=== PATIENT | female | born 1940 | race African-American/Black ===

== ENCOUNTER 2025-06-23 07:49 | Outpatient (CLI) | payer MEDICARE, MEDICAID, SELFPAY ==
[2025-06-23 08:34] LABS: Hematocrit 30.0 % (37.0-47.0); Hemoglobin 9.4 g/dL (12.2-16.2); Immature Granulocytes % 0.2 %; Mean Corpuscular HGB Conc 31.3 g/dL (31.8-35.4); Mean Corpuscular Hemoglobin 24.1 pg (27.0-31.2); Mean Corpuscular Volume 76.9 fl (81-99); Nucleated Red Blood Cells % 0 %; Platelet Count 242 K/mm3 (142-424); Red Blood Count 3.90 M/mm3 (4.20-5.40); Red Cell Distribution Width-SD 40.0 fL; White Blood Count 5.9 K/mm3 (4.8-10.8)
[2025-06-23 09:38] LABS: Alanine Aminotransferase 9 U/L (12-78); Albumin Level 3.1 g/dl (3.5-5.0); Albumin/Globulin Ratio 1.2 (1.1-1.8); Alkaline Phosphatase 98 U/L (38-126); Anion Gap 9.9 mEq/L (5-15); Aspartate Amino Transferase 20 U/L (14-36); Bilirubin,Total 0.4 mg/dl (0.2-1.3); Blood Urea Nitrogen 9 mg/dl (7-17); Calcium 9.4 mg/dl (8.4-10.2); Carbon Dioxide 30 mmol/L (22.0-30.0); Chloride 105 mmol/L (98-107); Cholesterol 130 mg/dl (140-200); Creatinine,Serum 0.70 mg/dl (0.52-1.04); Estimated Glomerular Filt Rate 80 ml/min (>60); GFR (African American) 96 ML/MIN (>60); Globulin 2.5 g/dL (1.3-3.2); Glucose 87 mg/dl (74-100); HDL Cholesterol 41 mg/dl (40-60); Potassium 3.9 mmoL/L (3.5-5.1); Sodium 141 mmol/L (136-145); Total Protein,Serum 5.6 g/dl (6.3-8.2); Triglycerides 73 mg/dl (30-150)
[2025-06-23 09:49] LABS: C-Reactive Protein 1.9 mg/L (0-4)
[2025-06-23 09:53] LABS: Free T4 (Free Thyroxine) 1.19 ng/dl (0.78-2.19)
[2025-06-23 10:08] LABS: Thyroid Stimulating Hormone 0.30 uIU/mL (0.465-4.68)
[2025-06-23 13:54] LABS: Hemoglobin A1C 6.3 % (4.0-6.0)
== END 2025-06-23 23:59 | disposition home or self-care (01) ==
PROVIDERS: PCP Family Medicine; Visit Provider Family Medicine
DX: J44.9 Chronic obstructive pulmonary disease, unspecified (principal); E11.9 Type 2 diabetes mellitus without complications; E05.90 Thyrotoxicosis, unspecified without thyrotoxic crisis or storm; M19.90 Unspecified osteoarthritis, unspecified site
CPT/HCPCS: 36415; 80053; 80061; 83036; 84439; 84443; 85025; 86140

== ENCOUNTER 2025-07-18 03:16 | Emergency (ER) | payer MEDICARE, SELFPAY ==
[2025-07-18] VITALS (9 sets, daily range): BP systolic 158–183; BP diastolic 83–99; PULSE 81–96; RESP 16–25; TEMP 36.9–37; O2SAT 96–100; BMI 31.2
--- NOTE | 2025-07-18 04:15 | XR_ITS ---
PROCEDURE INFORMATION: Exam: XR Chest Exam date and time: 07/18/2025 4:23 AM Age: 84 years old Clinical indication: Shortness of breath; Additional info: Chronic SOA TECHNIQUE: Imaging protocol: Radiologic exam of the chest. Views: 1 view. COMPARISON: No relevant prior studies available. FINDINGS: Lungs: Chronic interstitial changes. Mild hyperinflation. No focal infiltrates. No consolidation. Pleural spaces: Unremarkable. No pleural effusion. No pneumothorax. Heart/Mediastinum: Unremarkable. Moderate cardiomegaly. Bones/joints: Unremarkable. IMPRESSION: No acute findings. Chronic interstitial changes and moderate cardiomegaly.
[2025-07-18 04:37] LABS: Coronavirus 19, PCR Not Detected (NotDetected); Influenza A, PCR Not Detected (NotDetected); Influenza B, PCR Not Detected (NotDetected)
[2025-07-18 04:48] LABS: Hematocrit 32.2 % (37.0-47.0); Hemoglobin 10.0 g/dL (12.2-16.2); Immature Granulocytes % 0.2 %; Mean Corpuscular HGB Conc 31.1 g/dL (31.8-35.4); Mean Corpuscular Hemoglobin 24.0 pg (27.0-31.2); Mean Corpuscular Volume 77.2 fl (81-99); Nucleated Red Blood Cells % 0 %; Platelet Count 292 K/mm3 (142-424); Red Blood Count 4.17 M/mm3 (4.20-5.40); Red Cell Distribution Width-SD 42.5 fL; White Blood Count 5.9 K/mm3 (4.8-10.8)
[2025-07-18 05:05] LABS: D-Dimer 1.51 ug/mL (0.0-0.5)
--- NOTE | 2025-07-18 05:05 | HMH.EDGENADL ---
Discharge Plan Disposition Patient Disposition: Xfer [facility] Hospital Prescriptions Prescriptions: No Action carvedilol 25 mg tablet 37.5 mg PO BID Rx Instructions: must administer with a meal/food potassium chloride 10 mEq capsule, extended release 10 meq PO DAILY polyethylene glycol 3350 [Miralax] 17 gram powder in packet 17 g PO BID PRN (Reason: constipation) cetirizine 5 mg tablet 5 mg PO DAILY pantoprazole 40 mg tablet,delayed release (DR/EC) 40 mg PO DAILY methimazole 5 mg tablet 2.5 mg PO DAILY hydroxyzine HCl 25 mg tablet 25 mg PO TID PRN (Reason: anxiety) furosemide [Lasix] 20 mg tablet 20 mg PO DAILY nystatin 100,000 unit/gram powder 1 applic topical BID albuterol sulfate [Ventolin HFA] 90 mcg/actuation HFA aerosol inhaler 1 puff inhalation QID apixaban 5 mg tablet 5 mg PO BID umeclidinium-vilanterol 62.5-25 mcg/actuation blister with device 1 inh inhalation DAILY tramadol 50 mg tablet 50 mg PO BID PRN (Reason: pain) Qty: 60 5RF gabapentin 100 mg capsule 100 mg PO HS Qty: 30 5RF Referrals Follow up/Referrals: Provider,Referral, MD [Primary Care Provider, Medical] - See instructions Activity Restrictions/Add. Instructions Additional Instructions/Restrictions: Your CT scan showed small effusions and mild pulmonary edema. Your workup was otherwise negative. Recommend considering increasing your diuretic regimen. We attempted to call and speak with family but I was unable to reach them. Clinical Impressions Clinical Impression: Chronic dyspnea Print Language Print Language: Belarusian Discharge ED Provider: Jadno Cadena General Adult HPI General Chief complaint: Shortness of Breath/Dyspnea Stated complaint: Shortness of Air Time Seen by Provider: 07/18/25 03:50 Mode of Arrival: EMS Source of Information: Patient and EMS Description of Symptoms (Recalled from ER Triage Doc. by RN): PT brought to the ED via [facility] for evaluation of original c/o SOB when awoke from sleep due to not having her cpap. PT denies any c/o SOB upon arrival. PT stated she is scared to say if she feels safe or not at LTC facility. History of Present Illness HPI narrative: 84-year-old female with history of COPD on baseline oxygen, diabetes, coronary artery disease, A-fib, mild neurocognitive disorder,, resident at [facility] presents for shortness of breath. She reports that she feels short of breath all the time, has chest pain all the time, has a headache all the time. She is unhappy with her care at [facility], she wishes she was back in the hospital in [place]. The majority of the discussion that we had was for her asking to try to get her family to come pick her up or for us to transfer her to [place] so she can go home. She was admitted to [facility] after hospitalization for respiratory failure. She is bedbound and incontinent of bowel and bladder. She is concerned that she does not have her CPAP at the nursing facility that she had at home. She is concerned that she is not on all of her normal medications. Related Data Home Medications ?Medication ?Instructions ?Recorded ?Confirmed albuterol sulfate 90 mcg/actuation 1 puff inhalation QID 06/20/25 06/20/25 aerosol inhaler (Ventolin HFA) apixaban 5 mg tablet 5 mg PO BID 06/20/25 06/20/25 carvedilol 25 mg tablet 37.5 mg PO BID 06/20/25 06/20/25 cetirizine 5 mg tablet 5 mg PO DAILY 06/20/25 06/20/25 furosemide 20 mg tablet (Lasix) 20 mg PO DAILY 06/20/25 06/20/25 hydroxyzine HCl 25 mg tablet 25 mg PO TID PRN anxiety 06/20/25 06/20/25 methimazole 5 mg tablet 2.5 mg PO DAILY 06/20/25 06/20/25 nystatin 100,000 unit/gram topical 1 applic topical BID 06/20/25 06/20/25 powder pantoprazole 40 mg tablet,delayed 40 mg PO DAILY 06/20/25 06/20/25 release polyethylene glycol 3350 17 gram 17 g PO BID PRN constipation 06/20/25 06/20/25 oral powder packet (Miralax) potassium chloride 10 mEq 10 meq PO DAILY 06/20/25 06/20/25 capsule,extended release umeclidinium 62.5 mcg-vilanterol 1 inh inhalation DAILY 06/20/25 06/20/25 25 mcg/actuation powdr for inhalation Previous Rx's ?Medication ?Instructions ?Recorded gabapentin 100 mg capsule 100 mg PO HS #30 caps 06/27/25 tramadol 50 mg tablet 50 mg PO BID PRN pain #60 tabs 06/27/25 Allergies Allergy/AdvReac Type Severity Reaction Status Date / Time RAVI Inhibitors Allergy Verified 06/20/25 20:13 acetaminophen (From Panlor Allergy Verified 06/20/25 20:13 (hydrocodone-acetamin)) amlodipine Allergy Verified 06/20/25 20:13 clarithromycin Allergy Verified 06/20/25 20:13 codeine (From Allergy Verified 06/20/25 20:13 Tylenol-Codeine) diphenhydramine Allergy Verified 06/20/25 20:13 hydrocodone (From Panlor Allergy Verified 06/20/25 20:13 (hydrocodone-acetamin)) isosorbide Allergy Verified 06/20/25 20:13 latex Allergy Verified 06/20/25 20:13 meperidine Allergy Verified 06/20/25 20:13 morphine Allergy Verified 06/20/25 20:13 penicillin V Allergy Verified 06/20/25 20:13 sulfacetamide Allergy Verified 06/20/25 20:13 PFSH [facility] Disclaimer: The information contained in this section may have been updated after the patient was seen, as this information can be updated by other users. Medical History (Updated 07/18/25 @ 07:02 by Jadon Cadena MD) Left knee pain Allergy to multiple drugs Impaired mobility Decubitus skin ulcer Left renal mass Gastroesophageal reflux disease Allergic rhinitis Rotator cuff tear Osteoarthritis Mild cognitive impairment Diabetic neuropathy Diastolic CHF with preserved left ventricular function, NYHA class 4 Heart failure with preserved ejection fraction Diabetes mellitus Atrial fibrillation Coronary artery disease Hyperthyroidism Hypertension Sleep apnea with use of continuous positive airway pressure (CPAP) COPD (chronic obstructive pulmonary disease) Surgical History (Updated 06/20/25 @ 21:12 by Hal Shoemaker MD) History of knee replacement procedure of right knee History of History of cataract surgery History of cholecystectomy History of breast surgery History of hysterectomy History of carpal tunnel surgery History of coronary artery stent placement Social History (Updated 06/20/25 @ 21:08 by Hal Shoemaker MD) Smoking Status: Former smoker alcohol intake: never current occupational status: previously employed Travel in the last 8 weeks?: None Have you lived/traveled outside US in past 30 days?: No Contact w/someone who lives/traveled outside US past 30 days?: No Exposure to someone with infectious disease in past 14 days?: No Do you have a fever (greater than 100.4 F or 38 C)?: No Have you tested positive for COVID-19?: No Exposed to someone with COVID-19 in past 14 days?: No Do you have a sore throat?: No Do you have a cough?: No Do you have any weakness?: No Do you have any diarrhea?: No Are you experiencing any unusual bleeding?: No Do you have any muscle aches/pain?: No Do you have any abdominal pain?: No Are you experiencing loss of taste or smell?: No Other Medical History Have you received the Pneumonia Vaccine: No (unknown) ROS Obtained: Yes All systems reviewed & no additional complaints except as documented Physical Exam General General appearance: alert Comment: A bit anxious Head Head exam: atraumatic and normocephalic Eye Eye exam: Present normal appearance, PERRL and EOMI ENT ENT exam: Present normal oropharynx and normal external ear exam Neck Neck exam: Present normal inspection and full ROM Chest Chest inspection: Present normal inspection and symmetric chest wall rise; Absent tenderness Respiratory Respiratory exam: Present normal lung sounds bilaterally; Absent respiratory distress Cardiovascular Cardiovascular exam: Present regular rate and normal rhythm Abdominal Exam Abdominal exam: Present soft; Absent distention, tenderness or guarding Extremities Exam Extremities exam: Present normal inspection; Absent edema or joint swelling Back Exam Back exam: Present normal inspection; Absent tenderness Neurological Exam Neurological exam: Present alert and oriented X3; Absent motor sensory deficit Psychiatric Psychiatric exam: Present normal affect and normal mood Skin Skin exam: Present warm, dry and normal color Lymphatic Lymphatic Findings: no adenopathy Medical Decision Making Medical Records Medical records reviewed: Yes I reviewed the patient's medical records. Screening: Per USPSTF and CDC recommendations, given the prevalence of disease in our region, it is our hospital?s policy to screen for HIV and viral Hepatitis for all patients aged 18 and over and those with ongoing risk factors. Gabriel Inquiry Pt receiving controlled substance: No Gabriel was queried for this patient: No Vital Signs: 07/18/25 04:00 07/18/25 04:00 07/18/25 04:32 Temperature 98.6 F Temperature Source Axillary Pulse Rate 93 H 91 H Pulse Rate [Right] 96 H Respiratory Rate 16 Blood Pressure 158/93 H 166/96 H Blood Pressure [Right Arm] 180/99 H Blood Pressure Mean [Right Arm] 126 02 Sat by Pulse Oximetry 100 100 100 Oxygen Delivery Method Oxygen Flow Rate (LPM) 07/18/25 04:44 07/18/25 05:34 07/18/25 06:00 Temperature Temperature Source Pulse Rate 87 81 Pulse Rate [Right] Respiratory Rate 25 H 24 Blood Pressure 174/94 H 175/93 H Blood Pressure [Right Arm] Blood Pressure Mean [Right Arm] 02 Sat by Pulse Oximetry 96 100 100 Oxygen Delivery Method Nasal Cannula Oxygen Flow Rate (LPM) 3 07/18/25 06:11 07/18/25 06:30 07/18/25 07:01 Temperature Temperature Source Pulse Rate 89 91 H 91 H Pulse Rate [Right] Respiratory Rate 24 20 20 Blood Pressure 175/93 H 183/91 H 167/83 H Blood Pressure [Right Arm] Blood Pressure Mean [Right Arm] 02 Sat by Pulse Oximetry 100 100 100 Oxygen Delivery Method Nasal Cannula Oxygen Flow Rate (LPM) 3 Lab Data Lab results reviewed: Yes I reviewed the patient's lab results. Lab Results 07/18/25 04:30: SARS-CoV-2 (PCR) Not detected, Influenza A Untype (PCR) Not detected, Influenza Type B (PCR) Not detected 07/18/25 04:37: WBC 5.9, RBC 4.17 L, Hgb 10.0 L, Hct 32.2 L, MCV 77.2 L, MCH 24.0 L, MCHC 31.1 L, RDW 15.2, Plt Count 292, MPV 9.2, Neut % (Auto) 55.1, Lymph % (Auto) 28.1, Brooks % (Auto) 9.0, Eos % (Auto) 6.8, Baso % (Auto) 0.8, Neut # (Auto) 3.3, Lymph # (Auto) 1.7, Brooks # (Auto) 0.5, Eos # (Auto) 0.4, Baso # (Auto) 0.1, D-Dimer 1.51 H, Sodium 140, Potassium 3.7, Chloride 106, Carbon Dioxide 31 H, Anion Gap 6.7, BUN 9, Creatinine 0.70, Estimated Creat Clear 47, Estimated GFR 80, Est GFR ( Amer) 96, Glucose 112 H, Calcium 9.1, Total Bilirubin 0.4, AST 17, ALT 9 L, Alkaline Phosphatase 116, Troponin I < 0.01, NT-Pro-B Natriuret Pep 3380 H, Total Protein 6.1 L, Albumin 3.4 L, Globulin 2.7, Albumin/Globulin Ratio 1.3 07/18/25 04:37 07/18/25 04:37 Orders (Tests/Meds): ED MEDICATIONS Discontinued Medications Generic Name Dose Route Start Last Admin Trade Name Hungq PRN Reason Stop Dose Admin Iopamidol 80 ml 07/18/25 06:14 07/18/25 06:17 Iopamidol-370 (76%);100ml Bottle IV 07/18/25 06:15 80 ml ONCE ONE Administration Sodium Chloride 50 ml 07/18/25 06:14 07/18/25 06:17 0.9 % Sodium Chloride 50 Ml Vial IV 07/18/25 06:15 50 ml ONCE ONE Administration Sodium Chloride 10 ml 07/18/25 06:14 07/18/25 06:17 Sodium Chloride 0.9% 10ml Syr (Rad Only) IV 07/18/25 06:15 10 ml ONCE ONE Administration ORDERS Category Date Time Status CT angio chest PE protocol Stat Cat Scan 07/18/25 05:51 Completed CXR --portable [XR chest portable] Stat Exams 07/18/25 04:15 Completed BNP [NT Pro Brain Natriuretic Pep.] Stat Lab 07/18/25 04:37 Completed CBC w/Auto Diff [Complete Blood Count Auto Diff] Stat Lab 07/18/25 04:37 Completed CMP [Comprehensive Metabolic Panel] Stat Lab 07/18/25 04:37 Completed D-Dimer Stat Lab 07/18/25 04:37 Completed Rapid PCR Covid and Flu A/B Stat Lab 07/18/25 04:30 Completed Troponin I Q3H Lab 07/18/25 04:37 Completed Troponin I Q3H Lab 07/18/25 07:30 Ordered ECG Data Tracing #1: I reviewed this ECG and interpreted as documented below: A-fib, no significant ST elevation, rate of 96 ECG initial impression date: 07/18/25 ECG initial impression time: 05:27 HEART Score History (anamnesis): Slightly suspicious ECG: Normal Age: >65 years Risk factors: Atherosclerosis history Troponin: </= normal limit HEART Score: 4 Medical Decision Narrative: 84-year-old female with history of coronary artery disease, COPD on nasal cannula at baseline, diabetes, neurocognitive disorder, resident at [facility] presents for chronic chest pain chronic shortness of breath and headache.. History was obtained via interactive discussion with patient, EMS, chart review. On arrival, patient is [afebrile, hemodynamically stable, satting appropriately, alert, oriented x4, GCS 15], moving all extremities spontaneously. Full physical exam performed and significant for clear lungs bilaterally, patient satting on percent on home 3 L. Differential includes but is not limited to pneumonia, ACS, PE, intracranial abnormality, tension headache, migraine headache, malingering. Patient is generally well-appearing. Workup initiated including CBC CMP troponin D-dimer chest x-ray EKG. On re-evaluation, patient [remains afebrile, HD stable.] Laboratory workup independently interpreted by me and significant for positive D-dimer, initial troponin, BNP 3000. Will follow-up with CT PE to assess given positive dimer. Imaging independently interpreted by me and significant for cardiomegaly, clear lungs. CT does not show any evidence of PE. There is a small left and small to moderate right pleural effusion without evidence of pneumonia. See radiology read for full review of final results. Overall, patient's presentation seems most consistent with chronic respiratory failure/heart failure. Patient does not appear acutely decompensated, has no lower extremity edema, unremarkable labs. She does have small effusions and minimal pulmonary edema noted on CT. Patient has been satting 100% on her home oxygen level. Given this, I do not think she meets criteria for admission at this time. Recommend she increase her diuretic regimen at the nursing facility and continue to monitor. Return precautions given. Procedures Risk/Benefits of Procedure(s) Were Explained: Yes Critical Care Critical Care Time Critical Care Time: No
[2025-07-18 05:07] LABS: Alanine Aminotransferase 9 U/L (12-78); Albumin Level 3.4 g/dl (3.5-5.0); Albumin/Globulin Ratio 1.3 (1.1-1.8); Alkaline Phosphatase 116 U/L (38-126); Anion Gap 6.7 mEq/L (5-15); Aspartate Amino Transferase 17 U/L (14-36); Bilirubin,Total 0.4 mg/dl (0.2-1.3); Blood Urea Nitrogen 9 mg/dl (7-17); Calcium 9.1 mg/dl (8.4-10.2); Carbon Dioxide 31 mmol/L (22.0-30.0); Chloride 106 mmol/L (98-107); Creatinine Clearance Estimated 47 mL/min (50-200); Creatinine,Serum 0.70 mg/dl (0.52-1.04); Estimated Glomerular Filt Rate 80 ml/min (>60); GFR (African American) 96 ML/MIN (>60); Globulin 2.7 g/dL (1.3-3.2); Glucose 112 mg/dl (74-100); Potassium 3.7 mmoL/L (3.5-5.1); Sodium 140 mmol/L (136-145); Total Protein,Serum 6.1 g/dl (6.3-8.2)
[2025-07-18 05:14] LABS: NT Pro Brain Natriuretic Pep. 3380 pg/mL (0-450)
[2025-07-18 05:15] LABS: Troponin I < 0.01 ng/ml (0.00-0.034)
--- NOTE | 2025-07-18 05:27 | ECG_ITS ---
APPROVED REPORT Exam: Resting ECG HR:96 bpm ECG Measurements Heart Rate 96 AXES QRSd 90 QRS -25 QT 360 T 36 QTc 413 Conclusion ATRIAL FIBRILLATION BORDERLINE LEFT AXIS DEVIATION [QRS AXIS < -20] MINIMAL ST DEPRESSION [0.025+ mV ST DEPRESSION] ABNORMAL RHYTHM ECG UNCONFIRMED REPORT Electronically signed by : ALBERTO ARRIOLA, 07/19/2025 22:57:56
--- NOTE | 2025-07-18 05:51 | CT_ITS ---
PROCEDURE INFORMATION: Exam: CTA Chest With Contrast Exam date and time: 07/18/2025 6:17 AM Age: 84 years old Clinical indication: Shortness of breath and other: Positive d dimer; Additional info: SOA, positive dimer TECHNIQUE: Imaging protocol: Computed tomographic angiography of the chest with contrast. Exam focused on the arteries. 3D rendering (Not supervised by radiologist): MIP and/or 3D reconstructed images were created by the technologist. Radiation optimization: All CT scans at this facility use at least one of these dose optimization techniques: automated exposure control; mA and/or kV adjustment per patient size (includes targeted exams where dose is matched to clinical indication); or iterative reconstruction. Contrast material: ISO 370; Contrast volume: 80 ml; Contrast route: INTRAVENOUS (IV); COMPARISON: CR XR CHEST PORTABLE 07/18/2025 4:23 AM FINDINGS: Pulmonary arteries: Normal. No pulmonary emboli. Aorta: Unremarkable. No aortic aneurysm. No aortic dissection. Lungs: Mild diffuse ground-glass opacity is present bilaterally. Pleural spaces: Small to moderate right and small left-sided pleural effusion. Heart: Mild cardiomegaly. Coronary arteries: Small to moderate amount of coronary calcium. Lymph nodes: Unremarkable. No enlarged lymph nodes. Bones/joints: Unremarkable. No acute fracture. Soft tissues: Unremarkable. IMPRESSION: 1. No evidence of pulmonary embolus. 2. Mild diffuse ground-glass opacity may represent developing pulmonary edema. 3. Small to moderate right and small left-sided pleural effusion. 4. Coronary atherosclerosis with moderate cardiomegaly.
[2025-07-18] MEDS: IOPAMIDOL-370 (76%);100ML BOTTLE 80 ML IV (06:17)
[2025-07-18] MEDS: 0.9 % SODIUM CHLORIDE 50 ML VIAL IV (06:17)
[2025-07-18] MEDS: SODIUM CHLORIDE 0.9% 10ML SYR (RAD ONLY) 10 ML IV (06:17)
--- NOTE | 2025-07-18 07:18 | PC.NURSE ---
Report called to Jailene
== END 2025-07-18 07:29 ==
PROVIDERS: Emergency Provider Emergency Medicine
DX: R06.09 Other forms of dyspnea (principal); R07.9 Chest pain, unspecified; R51.9 Headache, unspecified; J90 Pleural effusion, not elsewhere classified; I48.91 Unspecified atrial fibrillation; J44.9 Chronic obstructive pulmonary disease, unspecified; I11.0 Hypertensive heart disease with heart failure; I50.30 Unspecified diastolic (congestive) heart failure; Z87.891 Personal history of nicotine dependence; Z99.81 Dependence on supplemental oxygen
CPT/HCPCS: 71045; 71275; 80053; 83880; 84484; 85025; 85378; 87636; 93005; 99285; Q9967

== ENCOUNTER 2025-07-23 08:12 | Outpatient (CLI) | payer MEDICARE, SELFPAY ==
[2025-07-23 08:54] LABS: Chloride 102 mmol/L (98-107)
[2025-07-23 08:55] LABS: Potassium 3.8 mmoL/L (3.5-5.1); Sodium 139 mmol/L (136-145)
[2025-07-23 08:58] LABS: Anion Gap 7.8 mEq/L (5-15); Blood Urea Nitrogen 11 mg/dl (7-17); Calcium 9.1 mg/dl (8.4-10.2); Carbon Dioxide 33 mmol/L (22.0-30.0); Creatinine,Serum 0.80 mg/dl (0.52-1.04); Estimated Glomerular Filt Rate 68 ml/min (>60); GFR (African American) 82 ML/MIN (>60); Glucose 89 mg/dl (74-100)
== END 2025-07-23 23:59 | disposition home or self-care (01) ==
PROVIDERS: PCP Family Medicine; Visit Provider Family Medicine
DX: I11.0 Hypertensive heart disease with heart failure (principal); I50.30 Unspecified diastolic (congestive) heart failure
CPT/HCPCS: 36415; 80048

== ENCOUNTER 2025-07-26 07:47 | Outpatient (CLI) | payer MEDICARE, SELFPAY ==
[2025-07-26 08:31] LABS: Chloride 101 mmol/L (98-107); Potassium 3.2 mmoL/L (3.5-5.1)
[2025-07-26 08:34] LABS: Anion Gap 7.2 mEq/L (5-15); Blood Urea Nitrogen 10 mg/dl (7-17); Carbon Dioxide 33 mmol/L (22.0-30.0); Creatinine,Serum 0.70 mg/dl (0.52-1.04); Estimated Glomerular Filt Rate 80 ml/min (>60); GFR (African American) 96 ML/MIN (>60); Sodium 138 mmol/L (136-145)
[2025-07-26 08:35] LABS: Calcium 9.2 mg/dl (8.4-10.2); Glucose 94 mg/dl (74-100)
== END 2025-07-26 23:59 | disposition home or self-care (01) ==
PROVIDERS: PCP Nurse Practitioner Family; Visit Provider Nurse Practitioner Family
DX: I11.0 Hypertensive heart disease with heart failure (principal); I50.30 Unspecified diastolic (congestive) heart failure
CPT/HCPCS: 36415; 80048

== ENCOUNTER 2025-07-28 13:19 | Observation (INO) | payer MEDICARE, SELFPAY ==
[2025-07-28] VITALS (9 sets, daily range): BP systolic 139–160; BP diastolic 74–92; PULSE 72–101; RESP 12–19; TEMP 36.6–37.1; O2SAT 96–100; BMI 28.9; BMI 27.4
--- NOTE | 2025-07-28 13:28 | XR_ITS ---
FINAL REPORT CLINICAL HISTORY: SOA/AMS COMPARISON: 07/18/2025 FINDINGS: A portable view of the chest was obtained. Cardiomegaly is present, stable when compared to the prior examination of 07/18/2025. The lungs are clear. There is no pleural effusion or pneumothorax. Bilateral paratracheal opacity may represent an enlarged thyroid gland. IMPRESSION: No acute process on this portable exam. Cardiomegaly, stable. Reviewed, Interpreted and Dictated by Lisbeth Trevino MD Transcribed by Maria G Awan Authenticated and [facility]
--- NOTE | 2025-07-28 13:29 | CT_ITS ---
FINAL REPORT TECHNIQUE: Thin section axial images were obtained from skull base to vertex without contrast. Coronal and sagittal reconstruction images were obtained from the axial data. Exam was performed using dose reduction techniques such as automated exposure control, adjustment of the mA and kV according to patient size, and use of iterative reconstruction technique. CLINICAL HISTORY: Altered mental status COMPARISON: None FINDINGS: There is atrophy. No mass effect or midline shift. No intracranial hemorrhage. No hydrocephalus. Periventricular low density is likely related to changes of chronic small vessel ischemia. There is a low density in the right thalamus that likely represents a remote lacunar infarct. The basilar cisterns are preserved. The posterior fossa is without acute abnormality. The soft tissues are without acute abnormality. No acute osseous abnormality is identified. IMPRESSION: No acute intracranial or osseous abnormality. Atrophy and changes suggesting chronic small vessel ischemia. Reviewed, Interpreted and Dictated by Lisbeth Trevino MD Transcribed by Maria G Awan Authenticated and [facility]
--- NOTE | 2025-07-28 13:29 | CT_ITS ---
FINAL REPORT TECHNIQUE: Thin section axial images were obtained from the aortic arch to the skull base after intravenous contrast injection per CTA protocol. Multiplanar reconstruction images were obtained. Exam was performed using dose reduction techniques and the ALARA principle. CLINICAL HISTORY: Encephalopathy encephalopathy COMPARISON: None FINDINGS: CTA NECK: Aortic arch: There is a normal three-vessel configuration to the aortic arch. There is no significant stenosis of the great vessels at their origins. Right carotid artery: The right common carotid artery is patent without stenosis. The cervical portions of the right internal carotid artery are patent without stenosis. 0% stenosis per NASCET criteria. Left carotid artery: The left common carotid artery is patent without stenosis. The cervical portions of the left internal carotid artery are patent without stenosis. 0% stenosis per NASCET criteria. Vertebral arteries: The vertebral arteries are patent. No significant stenosis. IMPRESSION: No significant vascular abnormality in the cervical portions of the carotid and vertebral arteries. Reviewed, Interpreted and Dictated by Lisbeth Trevino MD Transcribed by Maria G Awan Authenticated and [facility]
--- NOTE | 2025-07-28 13:29 | CT_ITS ---
FINAL REPORT TECHNIQUE: Thin section axial images were obtained through the neck and head after contrast administration per CT angiogram protocol. Multiplanar reconstruction images were obtained from the axial data. Exam was performed using dose reduction techniques such as automated exposure control, adjustment of the mA and kV according to patient's size, and use of iterative reconstruction technique. CLINICAL HISTORY: Encephalopathy COMPARISON: None FINDINGS: CTA NECK: Aortic arch: There is a normal three-vessel configuration to the aortic arch. There is no significant stenosis of the great vessels at their origins. Right carotid artery: The right common carotid artery is patent without stenosis. The cervical portions of the right internal carotid artery are patent without stenosis. 0% stenosis per NASCET criteria. Left carotid artery: The left common carotid artery is patent without stenosis. The cervical portions of the left internal carotid artery are patent without stenosis. 0% stenosis per NASCET criteria. Vertebral arteries: The vertebral arteries are patent. No significant stenosis. CTA HEAD: The intracerebral portions of the carotid arteries are patent. The anterior and posterior circulation are patent. The basilar artery is patent. The vertebral arteries are patent. There is no significant stenosis, aneurysm, or AVM. IMPRESSION: CTA NECK: No significant vascular stenosis identified. CTA HEAD: No significant vascular stenosis identified. Reviewed, Interpreted and Dictated by Lisbeth Trevino MD Transcribed by Maria G Awan Authenticated and [facility]
--- NOTE | 2025-07-28 13:30 | XR_ITS ---
FINAL REPORT CLINICAL HISTORY: Bilateral knee pain COMPARISON: None FINDINGS: AP, lateral and oblique views of the right knee were obtained. There is no prior exam for comparison. The patient has undergone a prior right knee total arthroplasty. The hardware is intact without evidence of fracture or dislocation. The soft tissues are normal. There is no joint effusion. IMPRESSION: Prior right total arthroplasty of the knee, with intact hardware and no evidence of fracture or dislocation. Reviewed, Interpreted and Dictated by Lisbeth Trevino MD Transcribed by Maria G Awan Authenticated and . [facility]
--- NOTE | 2025-07-28 13:30 | XR_ITS ---
FINAL REPORT CLINICAL HISTORY: Bilateral knee pain, popping of knee COMPARISON: None FINDINGS: AP, lateral and oblique views of the left knee were obtained. There is no prior exam for comparison. Advanced degenerative joint disease is present, along with osteopenia. There is an osteochondral lesion of the lateral femoral condyle. No acute fracture is identified, however there is a large joint effusion with multiple calcific loose bodies. Would consider MRI on an elective basis for further evaluation. IMPRESSION: Advanced degenerative joint disease, with a large joint effusion and multiple calcific loose bodies. Consider MRI on an elective basis for further evaluation. Reviewed, Interpreted and Dictated by Lisbeth Trevino MD Transcribed by Maria G Awan Authenticated and [facility]
--- NOTE | 2025-07-28 13:31 | [facility].EDGENADL ---
Discharge Plan Disposition Patient Disposition: Admitted Condition: Good Clinical Impressions Clinical Impression: Altered mental status, UTI (urinary tract infection), LOC (loss of consciousness) Discharge ED Provider: Prabhakar Wellington General Adult HPI <MONIE Verma - Last Filed: 07/28/25 16:48> General Chief complaint: Syncope Stated complaint: altered mental status Time Seen by Provider: 07/28/25 13:20 Mode of Arrival: EMS Source of Information: Patient, EMS and Medical Record Limitations: Altered Mental Status History of Present Illness HPI narrative: 84-year-old female presents emergency department via EMS from longterm facility for a brief episode of unresponsiveness, per longterm staff and EMS, report was called for the patient sitting at the dining room table when she reportedly was slumped over , not responding, when EMS arrived on the scene, patient's vitals were stable, she was responsive, seemed to be at her neurological/behavioral baseline, does have what seems like cognitive delay/altered mental status at baseline with a GCS of 14, oriented to self, disoriented to date and time, some orientation to place patient knows she is in the hospital. 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 Unsure of substance abuse history, initial triage vitals are unremarkable. Please note that above description of symptoms, in this electronic medical record under categorization of recalled from ER triage doctor by RN are reflective of an initial nursing assessment, however, is not reflective of my full history and physical exam that was personally taken and clarified. Consequentially, this preceding description of symptoms, which may include the patient's categorized chief complaint in the EMR, do not reflect my personal clinical impression, and the ultimate description of history of present illness and patient stated complaints should be deferred to this section of the note. Unless stated otherwise or congruent with this section of the note, additional signs, symptoms, or incongruence should be interpreted as inaccurate with my clinical impression. Onset (ago): hour(s) Related Data Home Medications ?Medication ?Instructions ?Recorded ?Confirmed albuterol sulfate 90 mcg/actuation 1 puff inhalation QID 06/20/25 07/21/25 aerosol inhaler (Ventolin HFA) apixaban 5 mg tablet 5 mg PO BID 06/20/25 07/21/25 carvedilol 25 mg tablet 37.5 mg PO BID 06/20/25 07/21/25 cetirizine 5 mg tablet 5 mg PO DAILY 06/20/25 07/21/25 furosemide 20 mg tablet (Lasix) 20 mg PO DAILY 06/20/25 07/21/25 hydroxyzine HCl 25 mg tablet 25 mg PO TID PRN anxiety 06/20/25 07/21/25 methimazole 5 mg tablet 2.5 mg PO DAILY 06/20/25 07/21/25 nystatin 100,000 unit/gram topical 1 applic topical BID 06/20/25 07/21/25 powder pantoprazole 40 mg tablet,delayed 40 mg PO DAILY 06/20/25 07/21/25 release polyethylene glycol 3350 17 gram 17 g PO BID PRN constipation 06/20/25 07/21/25 oral powder packet (Miralax) potassium chloride 10 mEq 10 meq PO DAILY 06/20/25 07/21/25 capsule,extended release umeclidinium 62.5 mcg-vilanterol 1 inh inhalation DAILY 06/20/25 07/21/25 25 mcg/actuation powdr for inhalation Previous Rx's ?Medication ?Instructions ?Recorded gabapentin 100 mg capsule 100 mg PO HS #30 caps 06/27/25 tramadol 50 mg tablet 50 mg PO BID PRN pain #60 tabs 06/27/25 Allergies Allergy/AdvReac Type Severity Reaction Status Date / Time RAVI Inhibitors Allergy Verified 07/21/25 09:45 acetaminophen (From Panlor Allergy Verified 07/21/25 09:45 (hydrocodone-acetamin)) amlodipine Allergy Verified 07/21/25 09:45 clarithromycin Allergy Verified 07/21/25 09:45 codeine (From Allergy Verified 07/21/25 09:45 Tylenol-Codeine) diphenhydramine Allergy Verified 07/21/25 09:45 hydrocodone (From Panlor Allergy Verified 07/21/25 09:45 (hydrocodone-acetamin)) isosorbide Allergy Verified 07/21/25 09:45 latex Allergy Verified 07/21/25 09:45 meperidine Allergy Verified 07/21/25 09:45 morphine Allergy Verified 07/21/25 09:45 penicillin V Allergy Verified 07/21/25 09:45 sulfacetamide Allergy Verified 07/21/25 09:45 [facility] <MONIE Verma - Last Filed: 07/28/25 16:48> [facility] Disclaimer: The information contained in this section may have been updated after the patient was seen, as this information can be updated by other users. Medical History Left knee pain Allergy to multiple drugs Impaired mobility Decubitus skin ulcer Left renal mass Gastroesophageal reflux disease Allergic rhinitis Rotator cuff tear Osteoarthritis Mild cognitive impairment Diabetic neuropathy Diastolic CHF with preserved left ventricular function, NYHA class 4 Heart failure with preserved ejection fraction Diabetes mellitus Atrial fibrillation Coronary artery disease Hyperthyroidism Hypertension Sleep apnea with use of continuous positive airway pressure (CPAP) COPD (chronic obstructive pulmonary disease) Surgical History History of knee replacement procedure of right knee History of History of cataract surgery History of cholecystectomy History of breast surgery History of hysterectomy History of carpal tunnel surgery Bilateral History of coronary artery stent placement Social History (Updated 07/21/25 @ 09:46 by Hal Shoemaker MD) Smoking Status: Former smoker alcohol intake: never current occupational status: previously employed Travel in the last 8 weeks?: None Have you lived/traveled outside [place] in past 30 days?: No Contact w/someone who lives/traveled outside US past 30 days?: No Exposure to someone with infectious disease in past 14 days?: No Do you have a fever (greater than 100.4 F or 38 C)?: No Have you tested positive for COVID-19?: No Exposed to someone with COVID-19 in past 14 days?: No Do you have a sore throat?: No Do you have a cough?: No Do you have any weakness?: No Do you have any diarrhea?: No Are you experiencing any unusual bleeding?: No Do you have any muscle aches/pain?: No Do you have any abdominal pain?: No Are you experiencing loss of taste or smell?: No Other Medical History Have you received the Pneumonia Vaccine: No (unknown) <MONIE Verma - Last Filed: 07/28/25 16:48> ROS Obtained: Yes All systems reviewed & no additional complaints except as documented Physical Exam <MONIE Verma - Last Filed: 07/28/25 16:48> General General appearance: alert and in no apparent distress Head Head exam: atraumatic and normocephalic Eye Eye exam: Present PERRL and EOMI ENT ENT exam: Present mucous membranes moist Neck Neck exam: Present normal inspection Chest Chest inspection: Present normal inspection and symmetric chest wall rise Respiratory Respiratory exam: Present normal lung sounds bilaterally; Absent respiratory distress Cardiovascular Cardiovascular exam: Present regular rate and normal rhythm Abdominal Exam Abdominal exam: Present soft; Absent tenderness, guarding, rebound or rigidity Extremities Exam Extremities exam: Present normal inspection, tenderness and other (Tenderness and some decreased range of motion to the bilateral knees, otherwise neurovascular intact); Absent full ROM Neurological Exam Neurological exam: Present alert and other (Oriented to person, some orientation to place she knows she is in a hospital, disoriented to time, GCS 14); Absent oriented X3 Psychiatric Psychiatric exam: Present normal affect Skin Skin exam: Present warm and dry Medical Decision Making <MONIE Verma - Last Filed: 07/28/25 16:48> Medical Records Medical records reviewed: Yes I reviewed the patient's medical records. Screening: Per USPSTF and CDC recommendations, given the prevalence of disease in our region, it is our hospital?s policy to screen for HIV and viral Hepatitis for all patients aged 18 and over and those with ongoing risk factors. Gabriel Inquiry Pt receiving controlled substance: No Gabriel was queried for this patient: No Vital Signs: 07/28/25 13:30 07/28/25 14:34 07/28/25 15:00 Temperature 98.8 F Temperature Source Oral Pulse Rate 85 82 Pulse Rate [Left Radial] 88 Respiratory Rate 19 15 17 Blood Pressure 150/82 H 155/82 H Blood Pressure [Right Arm] 139/80 Blood Pressure Mean Blood Pressure Mean [Right Arm] 99 02 Sat by Pulse Oximetry 99 100 100 Oxygen Delivery Method Nasal Cannula Nasal Cannula Nasal Cannula Oxygen Flow Rate (LPM) 2 2 2 07/28/25 15:30 Temperature Temperature Source Pulse Rate 88 Pulse Rate [Left Radial] Respiratory Rate 14 Blood Pressure 156/83 H Blood Pressure [Right Arm] Blood Pressure Mean 107 Blood Pressure Mean [Right Arm] 02 Sat by Pulse Oximetry 100 Oxygen Delivery Method Oxygen Flow Rate (LPM) Lab Data Lab results reviewed: Yes I reviewed the patient's lab results. Lab Results 07/28/25 13:45: WBC 9.3, RBC 4.42, Hgb 10.4 L, Hct 34.1 L, MCV 77.1 L, MCH 23.5 L, MCHC 30.5 L, RDW 14.9, Plt Count 305, MPV 9.8, Neut % (Auto) 65.5, Lymph % (Auto) 19.0, Harlan % (Auto) 9.7 H, Eos % (Auto) 4.7, Baso % (Auto) 0.8, Neut # (Auto) 6.1, Lymph # (Auto) 1.8, Harlan # (Auto) 0.9, Eos # (Auto) 0.4, Baso # (Auto) 0.1, Sodium 138, Potassium 3.6, Chloride 94 L, Carbon Dioxide 35 H, Anion Gap 12.6, BUN 12, Creatinine 0.90 D, Estimated Creat Clear 47, Estimated GFR 60, Est GFR ( Amer) 72 D, Glucose 170 H, Calcium 10.0, Magnesium 2.1, Total Bilirubin 0.6, AST 25, ALT 11 L, Alkaline Phosphatase 142 H, Troponin I 0.01, NT-Pro-B Natriuret Pep 3250 H, Total Protein 7.5, Albumin 3.9, Globulin 3.6 H, Albumin/Globulin Ratio 1.1, Lipase 31 07/28/25 14:33: Urine Color Yellow, Urine Appearance Sl cloudy, Urine pH 7.0, Ur Specific Elizabeth 1.010, Urine Protein Negative, Urine Glucose (UA) 2+, Urine Ketones Negative, Urine Blood Trace-i, Urine Nitrate Negative, Urine Bilirubin Negative, Urine Urobilinogen 0.2, Ur Leukocyte Esterase 3+ A, Urine RBC Occasional, Urine WBC Tntc, Ur Squamous Epith Cells 3-5, Urine Bacteria 3+, Urine Yeast 2+ 07/28/25 16:02: Ammonia < 9 L 07/28/25 13:45 07/28/25 13:45 Orders (Tests/Meds): ED MEDICATIONS Discontinued Medications Generic Name Dose Route Start Last Admin Trade Name [place] PRN Reason Stop Dose Admin Ceftriaxone Sodium 1 gm/ 50 mls @ 100 mls/hr 07/28/25 15:09 07/28/25 16:34 Sodium Chloride IV 07/28/25 15:38 100 mls/hr ONCE ONE Administration Iopamidol 80 ml 07/28/25 14:06 07/28/25 14:09 Iopamidol-370 (76%);100ml Bottle IV 07/28/25 14:07 80 ml ONCE ONE Administration Sodium Chloride 10 ml 07/28/25 14:06 07/28/25 14:08 Sodium Chloride 0.9% 10ml Syr (Rad Only) IV 07/28/25 14:07 10 ml ONCE ONE Administration Sodium Chloride 50 ml 07/28/25 14:06 07/28/25 14:08 0.9 % Sodium Chloride 50 Ml Vial IV 07/28/25 14:07 50 ml ONCE ONE Administration ORDERS Category Date Time Status CT angio head Stat Cat Scan 07/28/25 13:[address] angio neck Stat Cat Scan 07/28/25 13:[address] head/brain wo con Stat Cat Scan 07/28/25 13:29 Completed XR chest portable Stat Exams 07/28/25 13:28 Completed XR knee LT 3V Stat Exams 07/28/25 13:30 Completed XR knee RT 3V Stat Exams 07/28/25 13:30 Completed Ammonia Stat Lab 07/28/25 16:02 Completed Complete Blood Count Auto Diff Stat Lab 07/28/25 13:45 Completed Comprehensive Metabolic Panel Stat Lab 07/28/25 13:45 Completed Lipase Stat Lab 07/28/25 13:45 Completed Magnesium Stat Lab 07/28/25 13:45 Completed NT Pro Brain Natriuretic Pep. Stat Lab 07/28/25 13:45 Completed Troponin I Q3H Lab 07/28/25 16:30 Ordered Troponin I Q3H Lab 07/28/25 19:30 Ordered Troponin I Stat Lab 07/28/25 13:45 Completed Urinalysis and Microscopic Stat Lab 07/28/25 14:33 Completed Blood Culture Stat Micro 07/28/25 16:14 Ordered Urine Culture Stat Micro 07/28/25 14:33 Received VBG [Venous Blood Gas] Stat RT 07/28/25 16:14 Completed Medical Decision Narrative: 84-year-old female presents the emergency department via EMS for episode of altered mental status/loss of responsiveness, differential diagnose include but not limited to, TIA/CVA, acute UTI, hypovolemia, aspiration, encephalopathy, delirium, uremic cephalopathy, metabolic encephalopathy among others. I discussed this patient's case with the Dr. Wellington Will obtain basic laboratory studies, lipase level magnesium level proBNP troponin, ammonia level, UA, EKG, CT head without contrast, CTA head and neck with and without contrast, CXR, bilateral knee x-rays. I discussed this patient's case with the longterm physician Dr. Shoemaker at approximately 1:35 PM, per his report where he was called to the cafeteria to see the patient, she had a brief episode of what sounds like presyncopal versus syncope, per his examination she was clammy , and briefly unresponsive, thought to had had a presyncopal or syncopal event/event outside of her baseline. CBC notable for anemia, with MCV of 77.1, hemoglobin hematocrit appear stable/within patient's baseline CMP is notable for mild hypochloremia, 94, proBNP is mildly elevated at 3250 3+ leukocyte esterase is noted on patient's UA, negative nitrites, trace hematuria UA is notable for too numerous to count white blood cells, 3-5 squamous epithelial cells, 3+ bacteria, 2+ will give 1 g IV ceftriaxone for UTI. I reviewed the patient's bilateral knee x-rays along the corresponding radiologic report, and the right knee, prior right total arthroplasty of the knee with intact hardware and no evidence of fracture dislocation, Advanced degenerative joint disease with large joint effusion multiple calcified loose bodies consider MRI would like to base for further evaluation. I reviewed the patient's chest x-ray along the corresponding radiologic report, no acute process on portable exam, cardiomegaly is stable. I reviewed the patient's CT head without contrast on the corresponding radiologic report, no acute intracranial or osseous abnormality atrophy and changes suggesting chronic small vessel disease I reviewed the patient's CTA head and CTA neck with and without contrast, along the corresponding radiologic report, CTA neck shows no significant vascular stenosis identified, CTA head shows no significant vascular stenosis identified. I attempted to call hospitalist service at approximately 3:24 PM, no answer we will try again. I discussed this patient case with the hospitalist physician Dr. Segal at approximately 3:35 PM, he states that at this time if the patient is currently at her baseline, would benefit from admission, but the patient is currently at her baseline GCS, encephalopathy could be chronic, and would benefit from outpatient ABX for UTI. I will call the patient's longterm physician once again to really determine the patient's baseline/acuity of her symptomatology. As well as get some further information on the patient's brief episode of unresponsiveness. I discussed this patient's case yet again with the longterm physician Dr. Shoemaker at approximately 3:43 he believes the patient may benefit from admission, due to the brief loss of consciousness/loss of responsiveness being likely presyncopal versus syncopal, which is outside of her baseline. I once again discussed this patient's case with the hospitalist physician at approximately 3:46 PM, he accepted the patient, for presyncopal versus syncopal event,/brief loss of responsiveness, as well as UTI and confusion. Would like VBG, thus will obtain VBG. I discussed admission with patient at the bedside patient is in agreement with current admission plan/treatment plan. Prabhakar Wellington MD: I was consulted by the MONTRELL, and we discussed the complexity of the problems being addressed. I approved the treatment and management plan for this patient's care in the emergency department, thus performing a substantive portion of the medical decision making. Procedure: Procedure performed was ultrasound-guided IV placement. Procedure performed by Prabhakar Wellington. Using real-time ultrasound guidance the right basilic vein was cannulated with a long peripheral 18 gauge IV. The vessel cannulated was patent. Images were not saved to permanent archive. Patient tolerated the procedure well. There were no immediate complications. Procedure: Procedure performed was ultrasound-guided IV placement. Procedure performed by Prabhakar Wellington. Using real-time ultrasound guidance the right forearm vein was cannulated with a long peripheral 20 gauge IV. The vessel cannulated was patent. Images were not saved to permanent archive. Patient tolerated the procedure well. There were no immediate complications. Ammonia level within normal limits Troponin is 0.01 VBG is unremarkable. <Prabhakar Wellington MD - Last Filed: 07/28/25 16:03> Vital Signs: 07/28/25 13:30 07/28/25 14:34 07/28/25 15:00 Temperature 98.8 F Temperature Source Oral Pulse Rate 85 82 Pulse Rate [Left Radial] 88 Respiratory Rate 19 15 17 Blood Pressure 150/82 H 155/82 H Blood Pressure [Right Arm] 139/80 Blood Pressure Mean Blood Pressure Mean [Right Arm] 99 02 Sat by Pulse Oximetry 99 100 100 Oxygen Delivery Method Nasal Cannula Nasal Cannula Nasal Cannula Oxygen Flow Rate (LPM) 2 2 2 07/28/25 15:30 Temperature Temperature Source Pulse Rate 88 Pulse Rate [Left Radial] Respiratory Rate 14 Blood Pressure 156/83 H Blood Pressure [Right Arm] Blood Pressure Mean 107 Blood Pressure Mean [Right Arm] 02 Sat by Pulse Oximetry 100 Oxygen Delivery Method Oxygen Flow Rate (LPM) Lab Data Lab Results 07/28/25 13:45: WBC 9.3, RBC 4.42, Hgb 10.4 L, Hct 34.1 L, MCV 77.1 L, MCH 23.5 L, MCHC 30.5 L, RDW 14.9, Plt Count 305, MPV 9.8, Neut % (Auto) 65.5, Lymph % (Auto) 19.0, Harlan % (Auto) 9.7 H, Eos % (Auto) 4.7, Baso % (Auto) 0.8, Neut # (Auto) 6.1, Lymph # (Auto) 1.8, Harlan # (Auto) 0.9, Eos # (Auto) 0.4, Baso # (Auto) 0.1, Sodium 138, Potassium 3.6, Chloride 94 L, Carbon Dioxide 35 H, Anion Gap 12.6, BUN 12, Creatinine 0.90 D, Estimated Creat Clear 47, Estimated GFR 60, Est GFR ( Amer) 72 D, Glucose 170 H, Calcium 10.0, Magnesium 2.1, Total Bilirubin 0.6, AST 25, ALT 11 L, Alkaline Phosphatase 142 H, Troponin I 0.01, NT-Pro-B Natriuret Pep 3250 H, Total Protein 7.5, Albumin 3.9, Globulin 3.6 H, Albumin/Globulin Ratio 1.1, Lipase 31 07/28/25 14:33: Urine Color Yellow, Urine Appearance Sl cloudy, Urine pH 7.0, Ur Specific Elizabeth 1.010, Urine Protein Negative, Urine Glucose (UA) 2+, Urine Ketones Negative, Urine Blood Trace-i, Urine Nitrate Negative, Urine Bilirubin Negative, Urine Urobilinogen 0.2, Ur Leukocyte Esterase 3+ A, Urine RBC Occasional, Urine WBC Tntc, Ur Squamous Epith Cells 3-5, Urine Bacteria 3+, Urine Yeast 2+ 07/28/25 16:02: Ammonia < 9 L Orders (Tests/Meds): ED MEDICATIONS Discontinued Medications Generic Name Dose Route Start Last Admin Trade Name Freq PRN Reason Stop Dose Admin Ceftriaxone Sodium 1 gm/ 50 mls @ 100 mls/hr 07/28/25 15:09 07/28/25 16:34 Sodium Chloride IV 07/28/25 15:38 100 mls/hr ONCE ONE Administration Iopamidol 80 ml 07/28/25 14:06 07/28/25 14:09 Iopamidol-370 (76%);100ml Bottle IV 07/28/25 14:07 80 ml ONCE ONE Administration Sodium Chloride 10 ml 07/28/25 14:06 07/28/25 14:08 Sodium Chloride 0.9% 10ml Syr (Rad Only) IV 07/28/25 14:07 10 ml ONCE ONE Administration Sodium Chloride 50 ml 07/28/25 14:06 07/28/25 14:08 0.9 % Sodium Chloride 50 Ml Vial IV 07/28/25 14:07 50 ml ONCE ONE Administration ORDERS Category Date Time Status CT angio head Stat Cat Scan 07/28/25 13:[address] angio neck Stat Cat Scan 07/28/25 13:[address] head/brain wo con Stat Cat Scan 07/28/25 13:29 Completed XR chest portable Stat Exams 07/28/25 13:28 Completed XR knee LT 3V Stat Exams 07/28/25 13:30 Completed XR knee RT 3V Stat Exams 07/28/25 13:30 Completed Ammonia Stat Lab 07/28/25 16:02 Completed Complete Blood Count Auto Diff Stat Lab 07/28/25 13:45 Completed Comprehensive Metabolic Panel Stat Lab 07/28/25 13:45 Completed Lipase Stat Lab 07/28/25 13:45 Completed Magnesium Stat Lab 07/28/25 13:45 Completed NT Pro Brain Natriuretic Pep. Stat Lab 07/28/25 13:45 Completed Troponin I Q3H Lab 07/28/25 16:30 Ordered Troponin I Q3H Lab 07/28/25 19:30 Ordered Troponin I Stat Lab 07/28/25 13:45 Completed Urinalysis and Microscopic Stat Lab 07/28/25 14:33 Completed Blood Culture Stat Micro 07/28/25 16:14 Ordered Urine Culture Stat Micro 07/28/25 14:33 Received VBG [Venous Blood Gas] Stat RT 07/28/25 16:14 Completed ECG Data Tracing #1: Independently interpreted by me rate is 86, rhythm is irregular, no ST elevation in anatomical contiguous leads, QTc 432, atrial fibrillation. Medical Decision Narrative: 84-year-old female presents the emergency department via EMS for episode of altered mental status/loss of responsiveness, differential diagnose include but not limited to, TIA/CVA, acute UTI, hypovolemia, aspiration, encephalopathy, delirium, uremic cephalopathy, metabolic encephalopathy among others. I discussed this patient's case with the Dr. Wellington Will obtain basic laboratory studies, lipase level magnesium level proBNP troponin, ammonia level, UA, EKG, CT head without contrast, CTA head and neck with and without contrast, CXR, bilateral knee x-rays. I discussed this patient's case with the longterm physician Dr. Shoemaker at approximately 1:35 PM, per his report where he was called to the cafeteria to see the patient, she had a brief episode of what sounds like presyncopal versus syncope, per his examination she was clammy , and briefly unresponsive, thought to had had a presyncopal or syncopal event/event outside of her baseline. CBC notable for anemia, with MCV of 77.1, hemoglobin hematocrit appear stable/within patient's baseline CMP is notable for mild hypochloremia, 94, proBNP is mildly elevated at 3250 3+ leukocyte esterase is noted on patient's UA, negative nitrites, trace hematuria UA is notable for too numerous to count white blood cells, 3-5 squamous epithelial cells, 3+ bacteria, 2+ will give 1 g IV ceftriaxone for UTI. I reviewed the patient's bilateral knee x-rays along the corresponding radiologic report, and the right knee, prior right total arthroplasty of the knee with intact hardware and no evidence of fracture dislocation, Advanced degenerative joint disease with large joint effusion multiple calcified loose bodies consider MRI would like to base for further evaluation. I reviewed the patient's chest x-ray along the corresponding radiologic report, no acute process on portable exam, cardiomegaly is stable. I reviewed the patient's CT head without contrast on the corresponding radiologic report, no acute intracranial or osseous abnormality atrophy and changes suggesting chronic small vessel disease I reviewed the patient's CTA head and CTA neck with and without contrast, along the corresponding radiologic report, CTA neck shows no significant vascular stenosis identified, CTA head shows no significant vascular stenosis identified. I attempted to call hospitalist service at approximately 3:24 PM, no answer we will try again. I discussed this patient case with the hospitalist physician Dr. Segal at approximately 3:35 PM, he states that at this time if the patient is currently at her baseline, would benefit from admission, but the patient is currently at her baseline GCS, encephalopathy could be chronic, and would benefit from outpatient ABX for UTI. I will call the patient's longterm physician once again to really determine the patient's baseline/acuity of her symptomatology. I discussed this patient's case yet again with the longterm physician Dr. Shoemaker at approximately 3:43 he believes the patient may benefit from admission, due to the brief loss of consciousness/loss of responsiveness being likely presyncopal versus syncopal, which is outside of her baseline. I once again discussed this patient's case with the hospitalist physician at approximately 3:46 PM, he accepted the patient, for presyncopal versus syncopal event,/brief loss of responsiveness, as well as UTI and confusion. Would like VBG, thus will obtain VBG. I discussed admission with patient at the bedside patient is in agreement with current admission plan/treatment plan. Prabhakar Wellington MD: I was consulted by the MONTRELL, and we discussed the complexity of the problems being addressed. I approved the treatment and management plan for this patient's care in the emergency department, thus performing a substantive portion of the medical decision making. Procedure: Procedure performed was ultrasound-guided IV placement. Procedure performed by Prabhakar Wellington. Using real-time ultrasound guidance the right basilic vein was cannulated with a long peripheral 18 gauge IV. The vessel cannulated was patent. Images were not saved to permanent archive. Patient tolerated the procedure well. There were no immediate complications. Procedure: Procedure performed was ultrasound-guided IV placement. Procedure performed by Prabhakar Wellington. Using real-time ultrasound guidance the right forearm vein was cannulated with a long peripheral 20 gauge IV. The vessel cannulated was patent. Images were not saved to permanent archive. Patient tolerated the procedure well. There were no immediate complications. Critical Care <Prabhakar Wellington MD - Last Filed: 07/28/25 16:03> Critical Care Time Critical Care Time: No
--- NOTE | 2025-07-28 13:37 | PC.NURSE ---
PA on phone with TAMAR
--- NOTE | 2025-07-28 13:51 | ECG_ITS ---
APPROVED REPORT Exam: Resting ECG HR:86 bpm ECG Measurements Heart Rate 86 AXES QRSd 90 QRS -25 QT 388 T 32 QTc 432 Conclusion ATRIAL FIBRILLATION BORDERLINE LEFT AXIS DEVIATION [QRS AXIS < -20] MINIMAL ST DEPRESSION [0.025+ mV ST DEPRESSION] ABNORMAL RHYTHM ECG Electronically signed by : JAYLENE SEBASTIAN, 07/28/2025 16:18:29
--- NOTE | 2025-07-28 13:55 | PC.NURSE ---
patient gone to CT at this time.
[2025-07-28 13:56] LABS: Hematocrit 34.1 % (37.0-47.0); Hemoglobin 10.4 g/dL (12.2-16.2); Immature Granulocytes % 0.3 %; Mean Corpuscular HGB Conc 30.5 g/dL (31.8-35.4); Mean Corpuscular Hemoglobin 23.5 pg (27.0-31.2); Mean Corpuscular Volume 77.1 fl (81-99); Nucleated Red Blood Cells % 0 %; Platelet Count 305 K/mm3 (142-424); Red Blood Count 4.42 M/mm3 (4.20-5.40); Red Cell Distribution Width-SD 41.7 fL; White Blood Count 9.3 K/mm3 (4.8-10.8)
[2025-07-28] MEDS: SODIUM CHLORIDE 0.9% 10ML SYR (RAD ONLY) 10 ML IV (14:08)
[2025-07-28] MEDS: 0.9 % SODIUM CHLORIDE 50 ML VIAL IV (14:08)
[2025-07-28] MEDS: IOPAMIDOL-370 (76%);100ML BOTTLE 80 ML IV (14:09)
[2025-07-28 14:11] LABS: Albumin Level 3.9 g/dl (3.5-5.0); Chloride 94 mmol/L (98-107); Potassium 3.6 mmoL/L (3.5-5.1); Sodium 138 mmol/L (136-145)
[2025-07-28 14:14] LABS: Alanine Aminotransferase 11 U/L (12-78); Albumin/Globulin Ratio 1.1 (1.1-1.8); Alkaline Phosphatase 142 U/L (38-126); Anion Gap 12.6 mEq/L (5-15); Aspartate Amino Transferase 25 U/L (14-36); Bilirubin,Total 0.6 mg/dl (0.2-1.3); Calcium 10.0 mg/dl (8.4-10.2); Carbon Dioxide 35 mmol/L (22.0-30.0); Globulin 3.6 g/dL (1.3-3.2); Glucose 170 mg/dl (74-100); Lipase 31 U/L (23-300); Magnesium 2.1 mg/dl (1.6-2.3); Total Protein,Serum 7.5 g/dl (6.3-8.2)
[2025-07-28 14:26] LABS: NT Pro Brain Natriuretic Pep. 3250 pg/mL (0-450)
[2025-07-28 14:41] LABS: Microscopic, Urine URINE MICROSCOPIC (MICROSCOPIC)
[2025-07-28 14:43] LABS: Bilirubin,Urine Negative (Negative); Color,Urine YELLOW (Yellow); Glucose,Urine (UA) 2+ (Negative); Ketones,Urine Negative (Negative); Leukocyte Esterase,Urine 3+ (Negative); PH,Urine 7.0 (5.0-8.5); Protein,Urine Negative (Negative); Specific Gravity, Urine 1.010 (1.005-1.030); Urobilinogen,Urine 0.2 EU/dl (0.2)
[2025-07-28 14:52] LABS: RBC,Urine Occasional #/hpf (0-3)
[2025-07-28 14:53] LABS: Bacteria,Urine 3+ /lpf; WBC,Urine TNTC #/hpf (0-3)
--- NOTE | 2025-07-28 15:32 | PC.NURSE ---
PA on phone with [facility]
--- NOTE | 2025-07-28 15:43 | PC.NURSE ---
attempted to straight stick patient, unsuccessful.
--- NOTE | 2025-07-28 16:08 | PC.NURSE ---
ACUTE CARE PHYSICIAN NOTIFIED OF ADMISSION
[2025-07-28 16:15] LABS: Lactate Venous 1.6 mmol/L (0.4-2.0); VBG HCO3 29.9 mmol/L (23-30); VBG PH 7.39 mmol/L (7.31-7.41); VBG PO2 24.4 mmol/L (28-40)
[2025-07-28 16:18] LABS: Blood Urea Nitrogen 12 mg/dl (7-17); Creatinine Clearance Estimated 47 mL/min (50-200); Creatinine,Serum 0.90 mg/dl (0.52-1.04); Estimated Glomerular Filt Rate 60 ml/min (>60); GFR (African American) 72 ML/MIN (>60)
[2025-07-28 16:20] LABS: Ammonia < 9 umol/L (9-30)
[2025-07-28 16:20] LABS: VBG PCO2 50.0 mmol/L (35-51)
--- NOTE | 2025-07-28 16:21 | PC.NURSE ---
CRITICAL VBG RESULTS REPORTED TO DR BERNAL PCO2 20 LACTIC 1.64
--- NOTE | 2025-07-28 16:33 | PC.NURSE ---
ATTEMPTED TO CALL REPORT, NURSE WILL CALL BACK
[2025-07-28 16:34] LABS: Troponin I 0.01 ng/ml (0.00-0.034)
--- NOTE | 2025-07-28 17:14 | PC.NURSE ---
arrived by stretcher from ED
[2025-07-28 17:30] LABS: Troponin I 0.01 ng/ml (0.00-0.034)
--- NOTE | 2025-07-28 18:43 | PC.WOUNDNOTE ---
closed area to coccyx;
--- NOTE | 2025-07-28 18:51 | EXP.HP ---
History of Present Illness *Admission Date: 07/28/25 *Reason for visit:: Transient encephalopathy *History of present illness: John Cameron is an 84-year-old female with a medical history significant for A-fib on Eliquis, hypertension, hyperthyroidism, GERD, COPD who presents with transient encephalopathy at alf. Patient does not recall this event, however nursing reports patient was found to be transiently minimally responsive for about 1 to 2 minutes this afternoon. Concern for syncope, patient was brought to the ED for further evaluation. Upon arrival, patient was back to baseline. She denies chest pain, but does endorse some chronic shortness of breath, abdominal pain, leg swelling. Workup in the ED unremarkable other than UA grossly abnormal. I initially advised ED provider transient encephalopathy is likely from UTI, but ED provider was concerned that patient had cardiogenic syncope with a history of A-fib therefore I decided to admit patient for close monitoring. [facility] Disclaimer: The information contained in this section may have been updated after the patient was seen, as this information can be updated by other users. Medical History Left knee pain Allergy to multiple drugs Impaired mobility Decubitus skin ulcer Left renal mass Gastroesophageal reflux disease Allergic rhinitis Rotator cuff tear Osteoarthritis Mild cognitive impairment Diabetic neuropathy Diastolic CHF with preserved left ventricular function, NYHA class 4 Heart failure with preserved ejection fraction Diabetes mellitus Atrial fibrillation Coronary artery disease Hyperthyroidism Hypertension Sleep apnea with use of continuous positive airway pressure (CPAP) COPD (chronic obstructive pulmonary disease) Surgical History History of knee replacement procedure of right knee History of History of cataract surgery History of cholecystectomy History of breast surgery History of hysterectomy History of carpal tunnel surgery Bilateral History of coronary artery stent placement Social History (Updated 07/28/25 @ 17:56 by Mallory Lange RN) Smoking Status: Former smoker alcohol intake: never current occupational status: previously employed Travel in the last 8 weeks?: None Have you lived/traveled outside US in past 30 days?: No Contact w/someone who lives/traveled outside US past 30 days?: No Exposure to someone with infectious disease in past 14 days?: No Do you have a fever (greater than 100.4 F or 38 C)?: No Have you tested positive for COVID-19?: No Exposed to someone with COVID-19 in past 14 days?: No Do you have a sore throat?: No Do you have a cough?: No Do you have any weakness?: No Are you experiencing any nausea/vomitting?: No Do you have any diarrhea?: No Are you experiencing any unusual bleeding?: No Do you have any muscle aches/pain?: No Do you have any abdominal pain?: No Are you experiencing loss of taste or smell?: No Other Medical History Have you received the Flu Vaccine for this season: Yes Have you received the Pneumonia Vaccine: Yes Meds Home Medications and Allergies Home Medications ?Medication ?Instructions ?Recorded ?Confirmed ?Type albuterol sulfate 90 mcg/actuation 1 puff inhalation QID 06/20/25 07/28/25 History aerosol inhaler (Ventolin HFA) apixaban 5 mg tablet 5 mg PO BID 06/20/25 07/28/25 History carvedilol 25 mg tablet 37.5 mg PO BID 06/20/25 07/28/25 History cetirizine 5 mg tablet 5 mg PO DAILY 06/20/25 07/28/25 History furosemide 20 mg tablet (Lasix) 20 mg PO DAILY 06/20/25 07/28/25 History hydroxyzine HCl 25 mg tablet 25 mg PO TID PRN anxiety 06/20/25 07/28/25 History methimazole 5 mg tablet 2.5 mg PO DAILY 06/20/25 07/28/25 History nystatin 100,000 unit/gram topical 1 applic topical BID 06/20/25 07/28/25 History powder pantoprazole 40 mg tablet,delayed 40 mg PO DAILY 06/20/25 07/28/25 History release polyethylene glycol 3350 17 gram 17 g PO BID PRN constipation 06/20/25 07/28/25 History oral powder packet (Miralax) potassium chloride 10 mEq 10 meq PO DAILY 06/20/25 07/28/25 History capsule,extended release umeclidinium 62.5 mcg-vilanterol 1 inh inhalation DAILY 06/20/25 07/28/25 History 25 mcg/actuation powdr for inhalation gabapentin 100 mg capsule 100 mg PO HS #30 caps 06/27/25 07/28/25 Rx tramadol 50 mg tablet 50 mg PO BID PRN pain #60 tabs 06/27/25 07/28/25 Rx hydrochlorothiazide 25 mg tablet 25 mg PO DAILY 07/28/25 07/28/25 History New Prescriptions to Start Prescriptions: Allergies Allergy/AdvReac Type Severity Reaction Status Date / Time RAVI Inhibitors Allergy Verified 07/21/25 09:45 acetaminophen (From [facility] Allergy Verified 07/21/25 09:45 (hydrocodone-acetamin)) amlodipine Allergy Verified 07/21/25 09:45 clarithromycin Allergy Verified 07/21/25 09:45 codeine (From Allergy Verified 07/21/25 09:45 Tylenol-Codeine) diphenhydramine Allergy Verified 07/21/25 09:45 [facility]one [facility] Verified 07/21/25 09:45 (hydrocodone-acetamin)) isosorbide Allergy Verified 07/21/25 09:45 latex Allergy Verified 07/21/25 09:45 meperidine Allergy Verified 07/21/25 09:45 morphine Allergy Verified 07/21/25 09:45 penicillin V Allergy Verified 07/21/25 09:45 sulfacetamide Allergy Verified 07/21/25 09:45 Exam Data for Last 24 hours Vital signs and Labs for Last 24 Hours: Temp Pulse Resp BP Pulse Ox O2 Del Method O2 Flow Rate 97.8 F 101 H 17 153/80 H 100 Nasal Cannula 2 07/28/25 17:14 07/28/25 17:14 07/28/25 17:14 07/28/25 17:14 07/28/25 17:14 07/28/25 17:14 07/28/25 17:14 Laboratory Results - last 24 hr 07/28/25 13:45: WBC 9.3, RBC 4.42, Hgb 10.4 L, Hct 34.1 L, MCV 77.1 L, MCH 23.5 L, MCHC 30.5 L, RDW 14.9, Plt Count 305, MPV 9.8, Neut % (Auto) 65.5, Lymph % (Auto) 19.0, Lipscomb % (Auto) 9.7 H, Eos % (Auto) 4.7, Baso % (Auto) 0.8, Neut # (Auto) 6.1, Lymph # (Auto) 1.8, Lipscomb # (Auto) 0.9, Eos # (Auto) 0.4, Baso # (Auto) 0.1, Sodium 138, Potassium 3.6, Chloride 94 L, Carbon Dioxide 35 H, Anion Gap 12.6, BUN 12, Creatinine 0.90 D, Estimated Creat Clear 47, Estimated GFR 60, Est GFR ( Amer) 72 D, Glucose 170 H, Calcium 10.0, Magnesium 2.1, Total Bilirubin 0.6, AST 25, ALT 11 L, Alkaline Phosphatase 142 H, Troponin I 0.01, NT-Pro-B Natriuret Pep 3250 H, Total Protein 7.5, Albumin 3.9, Globulin 3.6 H, Albumin/Globulin Ratio 1.1, Lipase 31 07/28/25 14:33: Urine Color Yellow, Urine Appearance Sl cloudy, Urine pH 7.0, Ur Specific [place] 1.010, Urine Protein Negative, Urine Glucose (UA) 2+, Urine Ketones Negative, Urine Blood Trace-i, Urine Nitrate Negative, Urine Bilirubin Negative, Urine Urobilinogen 0.2, Ur Leukocyte Esterase 3+ A, Urine RBC Occasional, Urine WBC Tntc, Ur Squamous Epith Cells 3-5, Urine Bacteria 3+, Urine Yeast 2+ 07/28/25 16:02: Ammonia < 9 L 07/28/25 16:14: VBG pH 7.39, VBG pCO2 50.0, VBG pO2 24.4 L, VBG HCO3 29.9, VBG Total CO2 31.4 H, VBG O2 Saturation 40.9 L, VBG Base Excess 5.0 H, VBG Lactic Acid 1.6 07/28/25 16:55: Troponin I 0.01 I & O for Last 24 hours: Intake & Output 07/25/25 07/26/25 07/27/25 07/28/25 23:59 23:59 23:59 23:59 Weight 67.755 kg Constitutional Constitutional: no acute distress and chronically ill appearing *Routine HEENT Exam Head: Present normocephalic Eye: Present EOMI and PERRL ENT: Present mucous membranes moist *Routine Neck Exam Neck: Present supple; Absent lymphadenopathy *Routine Respiratory Exam Respiratory: Present CTA bilaterally *Routine Cardiovascular Exam Cardiovascular: Present RRR *Routine Abdominal Exam Abdominal: Present soft and normoactive bowel sounds; Absent tenderness *Routine Rectal Exam Rectal:: deferred *Routine Genitalia Exam Genitalia:: deferred *Routine Extremities Exam Extremities: Absent cyanosis, clubbing or edema *Routine Skin Exam Skin: Present warm; Absent rash *Routine Neurological Exam Neurological: Present alert Assessment and Plan *Assessment and plan (1) UTI (urinary tract infection): Status: Acute Category: Medical Code(s): N39.0 - Urinary tract infection, site not specified Plan John Cameron is an 84-year-old female with a medical history significant for A-fib on Eliquis, hypertension, hyperthyroidism, GERD, COPD who presents with transient encephalopathy at alf. Patient does not recall this event, however nursing reports patient was found to be transiently minimally responsive for about 1 to 2 minutes this afternoon. Concern for syncope, patient was brought to the ED for further evaluation. Upon arrival, patient was back to baseline. She denies chest pain, but does endorse some chronic shortness of breath, abdominal pain, leg swelling. Workup in the ED unremarkable other than UA grossly abnormal. I initially advised ED provider transient encephalopathy is likely from UTI, but ED provider was concerned that patient had cardiogenic syncope with a history of A-fib therefore I decided to admit patient for close monitoring. #Transient likely metabolic encephalopathy #UTI #Possible syncope ? Presented with transient alteration of mentation at alf for 1 to 2 minutes, back to baseline in the ED. ? Waxing and waning encephalopathy likely from UTI. Some suspicion for arrhythmia. ? Started IV ceftriaxone 1 g daily. Follow-up urine culture. ? Continuous cardiac telemetry. ? Follow-up morning CBC, CMP. #A-fib ? Currently rate controlled. Continue home carvedilol, Eliquis. #Hypertension ? Continue home medications once reconciled. #GERD ? Continue home PPI #COPD ? Continue home Trelegy once reconciled. Full code DVT prophylaxis: Lovenox 40 mg
[2025-07-28 20:10] LABS: POC Glucose,Bedside 116 gm/dL (70-110)
--- NOTE | 2025-07-28 20:16 | PC.NURSE ---
patient was gave a pb and jelly sandwich, pudding and diet pepsi.
[2025-07-28] MEDS: APIXABAN 5MG TABLET 5 MG PO (22:54)
[2025-07-29] VITALS: BP 139/65; PULSE 83; RESP 10; TEMP 36.6; O2SAT 100
[2025-07-29 03:35] VITALS: BMI 28.9
[2025-07-29 04:00] VITALS: PULSE 80
[2025-07-29 04:45] VITALS: PULSE 90
[2025-07-29 05:52] LABS: POC Glucose,Bedside 117 gm/dL (70-110)
[2025-07-29 06:36] LABS: Hematocrit 31.3 % (37.0-47.0); Hemoglobin 9.6 g/dL (12.2-16.2); Immature Granulocytes % 0.1 %; Mean Corpuscular HGB Conc 30.7 g/dL (31.8-35.4); Mean Corpuscular Hemoglobin 23.1 pg (27.0-31.2); Mean Corpuscular Volume 75.4 fl (81-99); Nucleated Red Blood Cells % 0 %; Platelet Count 268 K/mm3 (142-424); Red Blood Count 4.15 M/mm3 (4.20-5.40); Red Cell Distribution Width-SD 40.8 fL; White Blood Count 7.1 K/mm3 (4.8-10.8)
[2025-07-29 06:53] LABS: Alanine Aminotransferase 10 U/L (12-78); Albumin Level 3.4 g/dl (3.5-5.0); Albumin/Globulin Ratio 1.2 (1.1-1.8); Alkaline Phosphatase 141 U/L (38-126); Anion Gap 11.1 mEq/L (5-15); Aspartate Amino Transferase 19 U/L (14-36); Bilirubin,Total 0.6 mg/dl (0.2-1.3); Blood Urea Nitrogen 12 mg/dl (7-17); Calcium 9.2 mg/dl (8.4-10.2); Carbon Dioxide 32 mmol/L (22.0-30.0); Chloride 96 mmol/L (98-107); Creatinine Clearance Estimated 46 mL/min (50-200); Creatinine,Serum 0.80 mg/dl (0.52-1.04); Estimated Glomerular Filt Rate 68 ml/min (>60); GFR (African American) 82 ML/MIN (>60); Globulin 2.8 g/dL (1.3-3.2); Glucose 100 mg/dl (74-100); Magnesium 2.1 mg/dl (1.6-2.3); Potassium 3.1 mmoL/L (3.5-5.1); Sodium 136 mmol/L (136-145); Total Protein,Serum 6.2 g/dl (6.3-8.2)
[2025-07-29 07:57] VITALS: BP 134/63; PULSE 107; RESP 16; TEMP 36.7; O2SAT 100
[2025-07-29 08:00] VITALS: PULSE 100
--- NOTE | 2025-07-29 08:39 | P.CONPHA_ITS ---
Pharmacy Intervention Comments: MEDICATION RECONCILIATION COMPLETED ON PATIENT USING MAR FROM [facility]. -CLEMENCIA WEAVER, DEEDEED
--- NOTE | 2025-07-29 08:39 | HMH.PHAINT1 ---
Pharmacy Intervention Comments: MEDICATION RECONCILIATION COMPLETED ON PATIENT USING MAR FROM ASSISTED. -CLEMENCIA WEAVER, DEEDEED
[2025-07-29] MEDS: APIXABAN 5MG TABLET 5 MG PO (08:44)
[2025-07-29] MEDS: POTASSIUM CHLORIDE 20MEQ TAB 40 MEQ PO ×2 (08:44→13:33)
[2025-07-29] MEDS: FUROSEMIDE 20MG TABLET 20 MG PO (08:44)
[2025-07-29] MEDS: CARVEDILOL 25MG TABLET 37.5 MG PO (08:44)
--- NOTE | 2025-07-29 09:38 | SW/DCPLANNER ---
Addendum entered by Salma Ayala 07/29/25 12:17: I have updated Zara kennedy/ Jailene Cummins that patient will return [facility] level of care today. Original Note: Patient currently resides at [facility] level of care. Updated patient information will be faxed to Zara kennedy/ Jailene Cummins. Discharge date is unknown at this time. CM will continue to follow up.
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
--- NOTE | 2025-07-29 10:04 | HMH.PTEV ---
Physical Therapy Evaluation Rehab PT IP Evaluation Start: 07/28/25 17:55 Freq: ONCE Status: Active Protocol: Document 07/29/25 09:53 ITALO (Rec: 07/29/25 10:04 ITALO [id number]) Subjective/History History History Per H&P: John Cameron is an 84-year-old female with a medical history significant for A-fib on Eliquis, hypertension, hyperthyroidism, GERD, COPD who presents with transient encephalopathy at skilled nursing. Patient does not recall this event, however nursing reports patient was found to be transiently minimally responsive for about 1 to 2 minutes this afternoon. Concern for syncope, patient was brought to the ED for further evaluation. Upon arrival, patient was back to baseline. She denies chest pain, but does endorse some chronic shortness of breath, abdominal pain, leg swelling. Workup in the ED unremarkable other than UA grossly abnormal. I initially advised ED provider transient encephalopathy is likely from UTI, but ED provider was concerned that patient had cardiogenic syncope with a history of A-fib therefore I decided to admit patient for close monitoring. Subjective Subjective Pt is confused and with multiple complaints. Pt's primary complaint is severe LLE pain. Pt required max cueing to participate in PT evaluation. Pt reports she lives in a skilled nursing and uses a w/c for all mobility. They just put me in the w/c . Pt normally DEP for w/c mobility. Pt is questionable historian New diagnosis of No cancer in past 12 months? [facility] How much help from another person do you currently need... Turning from your Total back to your side while in a flat bed without using bedrails? Moving from lying on Total back to sitting on the side of a flat bed without using bedrails? Moving to and from a Total bed to a chair ( including a wheelchair)? Standing up from a Total chair using your arms? (e.g., wheelchair, bedside chair) Walking in hospital Total room? Climbing 3-5 steps Total with a railing? Mobility Score 6 Mobility Level [facility] Mobility 2 Bed activities/dependent transfer Mobility Calculator Rehab PT IP Eval Objective Appearance Patient Behavior Guarded Difficulty following none instructions Speech Pattern Rambling Ambulation Patient Able to No Ambulate Balance Ability to Arise Unable Transfers Bed Transfer Ability Total/Dependent (100%) Rehab PT IP prob,goals,plan Problems Date of Evaluation: 07/29/25 Rehab Potential Rehab Potential Innapropriate for Skilled Therapy Discharge Plan PT Discharge Plan Pt appears to be at her reported baseline with functional mobility. Pt would not benefit from skilled acute care PT at this time d/t mobility being at baseline. PT updated nursing staff about pt's high reported LLE pain level upon bed mobility. Eval Complexity Eval Charge Codes 39512 - Moderate Complexity PHYSICIAN CERTIFICATION: I certify the specified therapy services for John Cameron are required, authorized, and reviewed every 30 days.
--- NOTE | 2025-07-29 11:32 | CA_ITS ---
APPROVED REPORT EXAM: Comprehensive 2D, Doppler, and color-flow Echocardiogram Quartz Mounter: RT Samantha(R) Ht: 5 ft 2 in Wt: 158lbs BSA: 1.73 BP: 153/80 mmHg Indications: syncope, AFIB,CAD 2D Dimensions EF AP4 47.30 % GL Strain -7.7 % M-Mode Dimensions LA Diam 3.59 cm (1.9-4.0) Left Ventricle The left ventricle is normal size. Left ventricular systolic function is normal. The left ventricular ejection fraction is within the normal range. There is increased left ventricular wall thickness. There is normal LV segmental wall motion. The left ventricular diastolic function is indeterminate. LVEF is 55% Right Ventricle The right ventricle is not very well-visualized, but grossly appears at least mildly dilated with at least mild reduction in RV function. Atria The left atrium is moderately dilated. The right atrium is moderately dilated. There is no color Doppler evidence of interatrial shunt. Aortic Valve The aortic valve is mildly thickened. There is no hemodynamically significant aortic valvular stenosis. Trace oortic regurgitation is present. Mitral Valve Moderate mitral annular calcification is present. The mitral valve leaflets are mildly thickened. No evidence of mitral valve stenosis. Trace mitral regurgitation is present. Tricuspid Valve The tricuspid valve leaflets are thin and pliable. Trace tricuspid regurgitation. There is insufficient TR jet to estimate RVSP. Pulmonic Valve The pulmonary valve is grossly normal in structure. Trace pulmonic valve regurgitation is present. Great Vessels The aortic root is normal in size. IVC is normal in size and collapses >50% with inspiration. Pericardium There is no pericardial effusion. Other Information Study Quality: Technically Difficult Conclusion Technically difficult study. Normal LV systolic function. RV not very well-visualized, but grossly appears at least mildly dilated with at least mild reduction in RV function. Biatrial dilation. No significant valvular stenosis or regurgitation. Electronically signed by : Maureen Harrison MD 07/31/2025 22:12:27
--- NOTE | 2025-07-29 11:33 | XR_ITS ---
FINAL REPORT CLINICAL HISTORY: knee pain COMPARISON: 07/28/2025 FINDINGS: LEFT KNEE 2 views demonstrate no acute fracture or dislocation. There is severe 3 compartment degenerative change. There is a large joint effusion. There is a 10 mm lucency in the inferior patella that is nonaggressive. No acute soft tissue abnormality is seen. IMPRESSION: 3 compartment degenerative change and joint effusion. Patellar lesion as above. 3-month follow-up plain film recommended. Reviewed, Interpreted and Dictated by Dimas Perez MD Transcribed by Destini Newsome Authenticated and . [facility]
[2025-07-29 12:00] VITALS: PULSE 100
[2025-07-29 12:59] LABS: POC Glucose,Bedside 143 gm/dL (70-110)
[2025-07-29] MEDS: CEFTRIAXONE 1 GM 1 GM in 0.9 % SODIUM CHLORIDE 50 ML IV (13:33)
--- NOTE | 2025-07-29 14:45 | EXP.DC.SUM ---
General Admission date:: 07/28/25 HPI HPI HPI: John Cameron is an 84-year-old female with a medical history significant for A-fib on Eliquis, hypertension, hyperthyroidism, GERD, COPD who presents with transient encephalopathy at [facility]. Patient does not recall this event, however nursing reports patient was found to be transiently minimally responsive for about 1 to 2 minutes this afternoon. Concern for syncope, patient was brought to the ED for further evaluation. Upon arrival, patient was back to baseline. She denies chest pain, but does endorse some chronic shortness of breath, abdominal pain, leg swelling. Workup in the ED unremarkable other than UA grossly abnormal. I initially advised ED provider transient encephalopathy is likely from UTI, but ED provider was concerned that patient had cardiogenic syncope with a history of A-fib therefore I decided to admit patient for close monitoring. Hospital Course Hospital Course Hospital Course: John Cameron is an 84-year-old female with a medical history significant for A-fib on Eliquis, hypertension, hyperthyroidism, GERD, COPD who presents with transient encephalopathy at [facility]. Patient does not recall this event, however nursing reports patient was found to be transiently minimally responsive for about 1 to 2 minutes this afternoon. Concern for syncope, patient was brought to the ED for further evaluation. Upon arrival, patient was back to baseline. She denies chest pain, but does endorse some chronic shortness of breath, abdominal pain, leg swelling. Workup in the ED unremarkable other than UA grossly abnormal. I initially advised ED provider transient encephalopathy is likely from UTI, but ED provider was concerned that patient had cardiogenic syncope with a history of A-fib therefore I decided to admit patient for close monitoring. #Transient metabolic encephalopathy #UTI #Possible syncope ? Presented with transient alteration of mentation at [facility] for 1 to 2 minutes, back to baseline in the ED. ? Waxing and waning encephalopathy likely from UTI. Patient alert and oriented today, very conversational. ? No events on cardiac telemetry, low suspicion for cardiac arrhythmia. Will discharge with Holter monitor. Will follow-up on ECHO. ? Urine culture growing gram-positive cocci. ? Treated with IV ceftriaxone. Discharged with cefdinir 300 mg twice daily for 3 more days. Will follow-up on urine culture. ? Discontinue Jardiance due to recurrent UTIs. #Left knee pain ? Patient states she has been having acute on chronic left knee pain, though she also states she hurts all over. ? Left knee x-ray obtained, pending read. Personal review reveals chronic degenerative changes. ? Patient refuses Tylenol, believes it is bad for her heart. Also believes that it caused her to pass out yesterday. ? Continue tramadol 50 mg twice daily as needed if patient continues to have pain. #HFpEF ? Currently euvolemic. Continue home Lasix 20 mg daily. Discontinued Jardiance due to UTI. A1c at goal at 6.3. #Hyperthyroidism ? Continue home methimazole 2.5 mg twice daily. #A-fib ? Currently rate controlled. Continue home carvedilol, Eliquis. #Hypertension ? Continue home carvedilol 37.5 mg twice daily, hydrochlorothiazide 25 mg. #GERD ? Continue home PPI. #COPD ? Continue home Trelegy once reconciled. Exam Data for Last 24 hours Vital signs and Labs for Last 24 Hours: Temp Pulse Resp BP Pulse Ox O2 Del Method O2 Flow Rate 98.1 F 100 H 16 134/63 100 Nasal Cannula 2 07/29/25 07:57 07/29/25 12:00 07/29/25 07:57 07/29/25 07:57 07/29/25 07:57 07/29/25 14:12 07/29/25 14:12 Laboratory Results - last 24 hr 07/28/25 13:45: BUN 12, Creatinine 0.90 D, Estimated Creat Clear 47, Estimated GFR 60, Est GFR ( Amer) 72 D, Troponin I 0.01 07/28/25 14:33: Urine Color Yellow, Urine Appearance Sl cloudy, Urine pH 7.0, Ur Specific [place] 1.010, Urine Protein Negative, Urine Glucose (UA) 2+, Urine Ketones Negative, Urine Blood Trace-i, Urine Nitrate Negative, Urine Bilirubin Negative, Urine Urobilinogen 0.2, Ur Leukocyte Esterase 3+ A, Urine RBC Occasional, Urine WBC Tntc, Ur Squamous Epith Cells 3-5, Urine Bacteria 3+, Urine Yeast 2+ 07/28/25 16:02: Ammonia < 9 L 07/28/25 16:14: VBG pH 7.39, VBG pCO2 50.0, VBG pO2 24.4 L, VBG HCO3 29.9, VBG Total CO2 31.4 H, VBG O2 Saturation 40.9 L, VBG Base Excess 5.0 H, VBG Lactic Acid 1.6 07/28/25 16:55: Troponin I 0.01 07/28/25 20:00: POC Glucose 116 H 07/29/25 05:32: WBC 7.1, RBC 4.15 L, Hgb 9.6 L, Hct 31.3 L, MCV 75.4 L, MCH 23.1 L, MCHC 30.7 L, RDW 15.0, Plt Count 268, MPV 9.9, Neut % (Auto) 57.8, Lymph % (Auto) 25.6, [place] % (Auto) 10.8 H, Eos % (Auto) 5.0, Baso % (Auto) 0.7, Neut # (Auto) 4.1, Lymph # (Auto) 1.8, [place] # (Auto) 0.8, Eos # (Auto) 0.4, Baso # (Auto) 0.1, Sodium 136, Potassium 3.1 L, Chloride 96 L, Carbon Dioxide 32 H, Anion Gap 11.1, BUN 12, Creatinine 0.80, Estimated Creat Clear 46, Estimated GFR 68, Est GFR ( Amer) 82, Glucose 100 D, Calcium 9.2, Magnesium 2.1, Total Bilirubin 0.6, AST 19, ALT 10 L, Alkaline Phosphatase 141 H, Total Protein 6.2 L, Albumin 3.4 L D, Globulin 2.8, Albumin/Globulin Ratio 1.2 07/29/25 05:45: POC Glucose 117 H 07/29/25 10:34: POC Glucose 143 H I & O for Last 24 hours: Intake & Output 07/26/25 07/27/25 07/28/25 07/29/25 23:59 23:59 23:59 23:59 Intake Total 50 / 410 1130 / 1130 Output Total 750 / 750 Balance 10 380 / 380 Weight 67.755 kg 71.35 kg Microbiology Reports for the Last 24 Hours: Microbiology 07/28/25 14:33 Urine,Clean Catch Urine Culture - Preliminary Gram Positive Cocci Constitutional Constitutional: no acute distress and chronically ill appearing *Routine HEENT Exam Head: Present normocephalic Eye: Present EOMI and PERRL ENT: Present mucous membranes moist *Routine Neck Exam Neck: Present supple; Absent lymphadenopathy *Routine Respiratory Exam Respiratory: Present CTA bilaterally *Routine Cardiovascular Exam Cardiovascular: Present RRR *Routine Abdominal Exam Abdominal: Present soft and normoactive bowel sounds; Absent tenderness *Routine Extremities Exam Extremities: Absent cyanosis, clubbing or edema *Routine Skin Exam Skin: Present warm; Absent rash *Routine Neurological Exam Neurological: Present alert and oriented X3 Results Data Completed and Pending Labs on day of discharge: Labs from last 24 hours 07/29/25 07/29/25 07/29/25 10:34 05:45 05:32 WBC 7.1 RBC 4.15 L Hgb 9.6 L Hct 31.3 L MCV 75.4 L MCH 23.1 L MCHC 30.7 L RDW 15.0 Plt Count 268 MPV 9.9 Neut % (Auto) 57.8 Lymph % (Auto) 25.6 [place] % (Auto) 10.8 H Eos % (Auto) 5.0 Baso % (Auto) 0.7 Neut # (Auto) 4.1 Lymph # (Auto) 1.8 [place] # (Auto) 0.8 Eos # (Auto) 0.4 Baso # (Auto) 0.1 VBG pH VBG pCO2 VBG pO2 VBG HCO3 VBG Total CO2 VBG O2 Saturation VBG Base Excess VBG Lactic Acid Sodium 136 Potassium 3.1 L Chloride 96 L Carbon Dioxide 32 H Anion Gap 11.1 BUN 12 Creatinine 0.80 Estimated Creat Clear 46 Estimated GFR 68 Est GFR ( Amer) 82 Glucose 100 D POC Glucose 143 H 117 H Calcium 9.2 Magnesium 2.1 Total Bilirubin 0.6 AST 19 ALT 10 L Alkaline Phosphatase 141 H Ammonia Troponin I Total Protein 6.2 L Albumin 3.4 L D Globulin 2.8 Albumin/Globulin Ratio 1.2 Urine Color Urine Appearance Urine pH Ur Specific [place] Urine Protein Urine Glucose (UA) Urine Ketones Urine Blood Urine Nitrate Urine Bilirubin Urine Urobilinogen Ur Leukocyte Esterase Urine RBC Urine WBC Ur Squamous Epith Cells Urine Bacteria Urine Yeast 07/28/25 07/28/25 07/28/25 20:00 16:55 16:14 WBC RBC Hgb Hct MCV MCH MCHC RDW Plt Count MPV Neut % (Auto) Lymph % (Auto) [place] % (Auto) Eos % (Auto) Baso % (Auto) Neut # (Auto) Lymph # (Auto) [place] # (Auto) Eos # (Auto) Baso # (Auto) VBG pH 7.39 VBG pCO2 50.0 VBG pO2 24.4 L VBG HCO3 29.9 VBG Total CO2 31.4 H VBG O2 Saturation 40.9 L VBG Base Excess 5.0 H VBG Lactic Acid 1.6 Sodium Potassium Chloride Carbon Dioxide Anion Gap BUN Creatinine Estimated Creat Clear Estimated GFR Est GFR ( Amer) Glucose POC Glucose 116 H Calcium Magnesium Total Bilirubin AST ALT Alkaline Phosphatase Ammonia Troponin I 0.01 Total Protein Albumin Globulin Albumin/Globulin Ratio Urine Color Urine Appearance Urine pH Ur Specific [place] Urine Protein Urine Glucose (UA) Urine Ketones Urine Blood Urine Nitrate Urine Bilirubin Urine Urobilinogen Ur Leukocyte Esterase Urine RBC Urine WBC Ur Squamous Epith Cells Urine Bacteria Urine Yeast 07/28/25 07/28/25 07/28/25 16:02 14:33 13:45 WBC RBC Hgb Hct MCV MCH MCHC RDW Plt Count MPV Neut % (Auto) Lymph % (Auto) [place] % (Auto) Eos % (Auto) Baso % (Auto) Neut # (Auto) Lymph # (Auto) [place] # (Auto) Eos # (Auto) Baso # (Auto) VBG pH VBG pCO2 VBG pO2 VBG HCO3 VBG Total CO2 VBG O2 Saturation VBG Base Excess VBG Lactic Acid Sodium Potassium Chloride Carbon Dioxide Anion Gap BUN 12 Creatinine 0.90 D Estimated Creat Clear 47 Estimated GFR 60 Est GFR ( Amer) 72 D Glucose POC Glucose Calcium Magnesium Total Bilirubin AST ALT Alkaline Phosphatase Ammonia < 9 L Troponin I 0.01 Total Protein Albumin Globulin Albumin/Globulin Ratio Urine Color Yellow Urine Appearance Sl cloudy Urine pH 7.0 Ur Specific [place] 1.010 Urine Protein Negative Urine Glucose (UA) 2+ Urine Ketones Negative Urine Blood Trace-i Urine Nitrate Negative Urine Bilirubin Negative Urine Urobilinogen 0.2 Ur Leukocyte Esterase 3+ A Urine RBC Occasional Urine WBC Tntc Ur Squamous Epith Cells 3-5 Urine Bacteria 3+ Urine Yeast 2+ Preliminary micro results at discharge 07/28/25 14:33 Urine Culture - Preliminary Urine,Clean Catch Gram Positive Cocci DS: Diagnosis Discharge Diagnosis (1) UTI (urinary tract infection): Status: Acute Code(s): N39.0 - Urinary tract infection, site not specified Meds Home Medications and Allergies Home Medications ?Medication ?Instructions ?Recorded ?Confirmed ?Type albuterol sulfate 90 mcg/actuation 1 puff inhalation Q6HP PRN 06/20/25 07/29/25 History aerosol inhaler (Ventolin HFA) Shortness Of Breath apixaban 5 mg tablet 5 mg PO BID 06/20/25 07/28/25 History carvedilol 25 mg tablet 37.5 mg PO BID 06/20/25 07/28/25 History cetirizine 5 mg tablet 5 mg PO HS 06/20/25 07/29/25 History furosemide 20 mg tablet (Lasix) 20 mg PO DAILY 06/20/25 07/28/25 History hydroxyzine HCl 25 mg tablet 25 mg PO TIDP PRN anxiety 06/20/25 07/29/25 History methimazole 5 mg tablet 2.5 mg PO DAILY 06/20/25 07/28/25 History nystatin 100,000 unit/gram topical 1 applic topical BID 06/20/25 07/28/25 History powder pantoprazole 40 mg tablet,delayed 40 mg PO DAILY 06/20/25 07/28/25 History release polyethylene glycol 3350 17 gram 17 g PO BIDP PRN constipation 06/20/25 07/29/25 History oral powder packet (Miralax) potassium chloride 10 mEq 10 meq PO DAILY 06/20/25 07/28/25 History capsule,extended release umeclidinium 62.5 mcg-vilanterol 1 inh inhalation DAILY 06/20/25 07/28/25 History 25 mcg/actuation powdr for inhalation gabapentin 100 mg capsule 100 mg PO HS #30 caps 06/27/25 07/28/25 Rx hydrochlorothiazide 25 mg tablet 25 mg PO DAILY 07/28/25 07/28/25 History cefdinir 300 mg capsule 300 mg PO BID 3 days #6 caps 07/29/25 Rx docusate sodium 100 mg capsule 100 mg PO BID 07/29/25 07/29/25 History tramadol 50 mg tablet 50 mg PO BIDP PRN Moderate Pain 07/29/25 07/29/25 History (Scale Score 5-6) New Prescriptions to Start Prescriptions: Chris Cole Allergies Allergy/AdvReac Type Severity Reaction Status Date / Time RAVI Inhibitors Allergy Verified 07/21/25 09:45 acetaminophen (From Panlor Allergy Verified 07/21/25 09:45 (hydrocodone-acetamin)) amlodipine Allergy Verified 07/21/25 09:45 clarithromycin Allergy Verified 07/21/25 09:45 codeine (From Allergy Verified 07/21/25 09:45 Tylenol-Codeine) diphenhydramine Allergy Verified 07/21/25 09:45 hydrocodone (From Panlor Allergy Verified 07/21/25 09:45 (hydrocodone-acetamin)) isosorbide Allergy Verified 07/21/25 09:45 latex Allergy Verified 07/21/25 09:45 meperidine Allergy Verified 07/21/25 09:45 morphine Allergy Verified 07/21/25 09:45 penicillin V Allergy Verified 07/21/25 09:45 sulfacetamide Allergy Verified 07/21/25 09:45 Discharge Plan Disposition Patient Disposition: [facility] Condition: Fair Discharge Order Discharge Orders: Discharge Order (Routine); Ordered 07/29/25 Ordered By: Chris Kinsey Follow up Plan Prescriptions/Medication Reconciliation: New cefdinir 300 mg capsule 300 mg PO BID 3 Days Qty: 6 0RF Continued carvedilol 25 mg tablet 37.5 mg PO BID Rx Instructions: must administer with a meal/food potassium chloride 10 mEq capsule, extended release 10 meq PO DAILY polyethylene glycol 3350 [Miralax] 17 gram powder in packet 17 g PO BIDP PRN (Reason: constipation) cetirizine 5 mg tablet 5 mg PO HS pantoprazole 40 mg tablet,delayed release (DR/EC) 40 mg PO DAILY methimazole 5 mg tablet 2.5 mg PO DAILY hydroxyzine HCl 25 mg tablet 25 mg PO TIDP PRN (Reason: anxiety) furosemide [Lasix] 20 mg tablet 20 mg PO DAILY nystatin 100,000 unit/gram powder 1 applic topical BID albuterol sulfate [Ventolin HFA] 90 mcg/actuation HFA aerosol inhaler 1 puff inhalation Q6HP PRN (Reason: Shortness Of Breath) apixaban 5 mg tablet 5 mg PO BID umeclidinium-vilanterol 62.5-25 mcg/actuation blister with device 1 inh inhalation DAILY gabapentin 100 mg capsule 100 mg PO HS Qty: 30 5RF hydrochlorothiazide 25 mg tablet 25 mg PO DAILY docusate sodium 100 mg Capsule 100 mg PO BID tramadol 50 mg tablet 50 mg PO BIDP PRN (Reason: Moderate Pain (Scale Score 5-6)) Discontinued Jardiance 10 mg tablet 10 mg PO DAILY Problem Reconciliation Problems Reviewed?: Yes Patient Discharge Instructions Patient Instructions: DI for Syncope in Adults (Fainting), DI for Urinary Tract Infection (UTI), Stop Light Heart Failure Print Language: Algerian Providers Primary Care Provider: Provider,Referral Admit Provider: Chris Kinsey Attending Provider: Chris Kinsey
[2025-07-29 15:23] LABS: Free T4 (Free Thyroxine) 0.94 ng/dl (0.78-2.19)
[2025-07-29 15:37] LABS: Thyroid Stimulating Hormone 3.23 uIU/mL (0.465-4.68)
--- NOTE | 2025-07-29 16:57 | PC.NURSE ---
Report called to [place] nurse nelson. Ambulance called.
== END 2025-07-29 17:16 ==
LOC: ER 15:50 → 2ND 16:20
PROVIDERS: Physician Assistant; Admitting Provider Student in an Organized Health Care Education/Training Program; Emergency Provider Emergency Medicine; Visit Provider Student in an Organized Health Care Education/Training Program
DX: G93.41 Metabolic encephalopathy (principal); N39.0 Urinary tract infection, site not specified; I48.91 Unspecified atrial fibrillation; M17.12 Unilateral primary osteoarthritis, left knee; K21.9 Gastro-esophageal reflux disease without esophagitis; E11.40 Type 2 diabetes mellitus with diabetic neuropathy, unspecified; J44.9 Chronic obstructive pulmonary disease, unspecified; I11.0 Hypertensive heart disease with heart failure; I50.30 Unspecified diastolic (congestive) heart failure; E05.90 Thyrotoxicosis, unspecified without thyrotoxic crisis or storm; E78.5 Hyperlipidemia, unspecified; F32.9 Major depressive disorder, single episode, unspecified; G47.33 Obstructive sleep apnea (adult) (pediatric); F41.1 Generalized anxiety disorder; I25.10 Atherosclerotic heart disease of native coronary artery without angina pectoris; Z95.5 Presence of coronary angioplasty implant and graft; Z88.8 Allergy status to other drugs, medicaments and biological substances; Z88.6 Allergy status to analgesic agent; Z88.1 Allergy status to other antibiotic agents; Z88.5 Allergy status to narcotic agent; Z88.0 Allergy status to penicillin; Z88.2 Allergy status to sulfonamides; Z91.040 Latex allergy status; Z99.89 Dependence on other enabling machines and devices; Z87.891 Personal history of nicotine dependence; Z79.01 Long term (current) use of anticoagulants; Z79.891 Long term (current) use of opiate analgesic; Z79.899 Other long term (current) drug therapy
CPT/HCPCS: 36415; 70450; 70496; 70498; 71045; 73560; 73562; 80053; 81001; 82140; 82803; 82962; 83690; 83735; 83880; 84439; 84443; 84484; 85025; 87040; 87086; 87088; 87186; 93005; 93306; 96365; 96366; 96376; 97162; 97166; 99285; G0378; J0696; Q9967

== ENCOUNTER 2025-08-27 09:35 | Outpatient (CLI) | payer MEDICARE, SELFPAY ==
[2025-08-27 09:57] LABS: Anion Gap 7.1 mEq/L (5-15); Blood Urea Nitrogen 9 mg/dl (7-17); Calcium 9.2 mg/dl (8.4-10.2); Carbon Dioxide 34 mmol/L (22.0-30.0); Chloride 97 mmol/L (98-107); Creatinine,Serum 0.80 mg/dl (0.52-1.04); Estimated Glomerular Filt Rate 68 ml/min (>60); GFR (African American) 82 ML/MIN (>60); Glucose 107 mg/dl (74-100); Potassium 3.1 mmoL/L (3.5-5.1); Sodium 135 mmol/L (136-145)
== END 2025-08-27 23:59 | disposition home or self-care (01) ==
PROVIDERS: PCP Family Medicine; Visit Provider Family Medicine
DX: E87.6 Hypokalemia (principal)
CPT/HCPCS: 36415; 80048

== ENCOUNTER 2025-09-03 07:41 | Outpatient (CLI) | payer MEDICARE, SELFPAY ==
--- OUTSIDE RECORDS SUMMARY | 2025-09-03 07:43 | XMS_ITS ---
Author Organization Unknown ENCOUNTERS Encounter Performer Location Date Diagnosis Diagnosis Status Outpatient [facility] [address] [place] [address] [id number] [facility] [address] [place] [address] [id number] A Pre Admit [facility] [address] [place] [address] [id number] Emergency [facility] [address] [place] [address] [id number] [facility] Pre Admit [facility] [address] [place] [address] [id number] *Note: Encounters from your own facility or health system may be excluded. Allergies, Adverse Reactions, Alerts Allergen Type Severity Identification Date penicillin V drug allergy 1 [id number] acetaminophen drug allergy 1 [id number] meperidine drug allergy 1 [id number] amlodipine drug allergy 1 07109114 sulfacetamide drug allergy 1 20135973 morphine drug allergy 1 87719494 codeine drug allergy 1 75999326 latex drug allergy 1 30265964 diphenhydramine drug allergy 1 [id number] RAVI Inhibitors drug allergy 1 49178248 clarithromycin drug allergy 1 71934172 hydrocodone drug allergy 1 17060050 isosorbide drug allergy 1 51567429 Medications Name Date Quantity Days Supplied GPI Number
[2025-09-03 08:42] LABS: Anion Gap 7.3 mEq/L (5-15); Blood Urea Nitrogen 9 mg/dl (7-17); Calcium 9.4 mg/dl (8.4-10.2); Carbon Dioxide 32 mmol/L (22.0-30.0); Chloride 97 mmol/L (98-107); Creatinine,Serum 0.80 mg/dl (0.52-1.04); Estimated Glomerular Filt Rate 68 ml/min (>60); GFR (African American) 82 ML/MIN (>60); Glucose 131 mg/dl (74-100); Potassium 3.3 mmoL/L (3.5-5.1); Sodium 133 mmol/L (136-145)
== END 2025-09-03 23:59 | disposition home or self-care (01) ==
LOC: LAB.DROPOF 07:42
PROVIDERS: PCP Family Medicine; Visit Provider Nurse Practitioner Family
DX: E87.6 Hypokalemia (principal)
CPT/HCPCS: 36415; 80048

== ENCOUNTER 2025-09-20 22:35 | Emergency (ER) | payer MEDICARE, SELFPAY ==
--- NOTE | 2025-09-20 | ECG_ITS ---
APPROVED REPORT Exam: Resting ECG HR:116 bpm ECG Measurements Heart Rate 116 AXES QRSd 91 QRS -26 QT 311 T 32 QTc 380 Conclusion ATRIAL FIBRILLATION WITH RAPID VENTRICULAR RESPONSE BORDERLINE LEFT AXIS DEVIATION [QRS AXIS < -20] MINIMAL ST DEPRESSION [0.025+ mV ST DEPRESSION] ABNORMAL RHYTHM ECG INTERPRETATION BASED ON A DEFAULT AGE OF 40 YEARS Electronically signed by : JAYLENE SEBASTIAN, 09/21/2025 17:13:30
--- NOTE | 2025-09-20 22:59 | ED_ITS ---
Discharge Plan Disposition Patient Disposition: er [facility] Hospital Prescriptions Prescriptions: No Action carvedilol 25 mg tablet 37.5 mg PO BID Rx Instructions: must administer with a meal/food polyethylene glycol 3350 [Miralax] 17 gram powder in packet 17 g PO BIDP PRN (Reason: constipation) cetirizine 5 mg tablet 5 mg PO HS pantoprazole 40 mg tablet,delayed release (DR/EC) 40 mg PO DAILY methimazole 5 mg tablet 2.5 mg PO DAILY hydroxyzine HCl 25 mg tablet 25 mg PO TIDP PRN (Reason: anxiety) furosemide [Lasix] 20 mg tablet 20 mg PO DAILY nystatin 100,000 unit/gram powder 1 applic topical BID albuterol sulfate [Ventolin HFA] 90 mcg/actuation HFA aerosol inhaler 1 puff inhalation Q6HP PRN (Reason: Shortness Of Breath) apixaban 5 mg tablet 5 mg PO BID umeclidinium-vilanterol 62.5-25 mcg/actuation blister with device 1 inh inhalation DAILY gabapentin 100 mg capsule 100 mg PO HS Qty: 30 5RF potassium chloride 10 mEq capsule, extended release 20 meq PO TID tramadol 50 mg tablet 50 mg PO BID Qty: 60 5RF hydrochlorothiazide 25 mg tablet 25 mg PO DAILY docusate sodium 100 mg Capsule 100 mg PO BID cefdinir 300 mg capsule 300 mg PO BID 3 Days Qty: 6 0RF Referrals Follow up/Referrals: Hal Shoemaker MD [Primary Care Provider, Family Practice] - See instructions Activity Restrictions/Add. Instructions Additional Instructions/Restrictions: Patient refused further IV attempts and so did not receive labs nor contrasted image. A noncontrast CT scan of the abdomen did not show any significant abnormality. Urinalysis did not show any signs of infection. Clinical Impressions Clinical Impression: Abdominal pain Qualifiers: Abdominal location: generalized Qualified Code(s): R10.84 - Generalized abdominal pain Instructions Patient Instructions: DI for Acute Abdominal Pain Print Language Print Language: Croatian Discharge ED Provider: Jadon Cadena General Adult HPI General Chief complaint: Abdominal Pain Stated complaint: chest pain Time Seen by Provider: 09/20/25 22:59 History of Present Illness HPI narrative: 85-year-old female with history of heart, COPD, diabetes, A-fib presents for abdominal pain. She reports that she has been hurting a bit more than normal. She reports that she hurts all over. She denies any chest pain or shortness of breath. She reports that she has had some loose stools. She does not know if she has had any urinary symptoms. She reports she has had her gallbladder and appendix taken out and is unsure of other surgeries. No reported fever at home. She is upset because she feels like she has been abandoned by her family. She reports chronic bilateral leg pain. Related Data Home Medications ?Medication ?Instructions ?Recorded ?Confirmed albuterol sulfate 90 mcg/actuation 1 puff inhalation Q 6HP PRN 06/20/25 08/25/25 aerosol inhaler (Ventolin HFA) Shortness Of Breath apixaban 5 mg tablet 5 mg PO BID 06/20/25 5 carvedilol 25 mg tablet 37.5 mg PO BID 06/20/2503/14 cetirizine 5 mg tablet 5 mg PO HS 06/20/25 08/25/25 furosemide 20 mg tablet (Lasix) 20 mg PO DAILY 5 08/25/25 hydroxyzine HCl 25 mg tablet 25 mg PO TIDP PRN anxiety 06/20/25 08/25/25 methimazole 5 mg tablet 2.5 mg PO DAILY 06/20/2503/14 nystatin 100,000 unit/gram topical 1 applic topical BI D 06/20/25 08/25/25 powder pantoprazole 40 mg tablet,delayed 40 mg PO DAILY 06/2008/25/25 release polyethylene glycol 3350 17 gram 17 g PO BIDP PRN cons tipation 06/20/25 08/25/25 oral powder packet (Miralax) umeclidinium 62.5 mcg-vilanterol 1 inh inhalation VANNESSA Y 06/20/25 08/25/25 25 mcg/actuation powdr for inhalation hydrochlorothiazide 25 mg tablet 25 mg PO DAILY 08/25/25 docusate sodium 100 mg capsule 100 mg PO BID 07/29/25 08/25/25 potassium chloride 10 mEq 20 meq PO TID 08/31/25 capsule,extended release Previous Rx's ?Medication ?Instructions ?Recorded gabapentin 100 mg capsule 100 mg PO HS #30 caps cefdinir 300 mg capsule 300 mg PO BID 3 days #6 caps 07/29/25 tramadol 50 mg tablet 50 mg PO BID Moderate Pain ( Scale 09/15/25 Score 5-6) #60 tabs Allergies Allergy/AdvReac Type Severity Reaction Status Date / Time RAVI Inhibitors Allergy Verified 07/21/25 09:45 acetaminophen (From Panlor Allergy Verified 07/21/25 09:45 (hydrocodone-acetamin)) amlodipine Allergy Verified 07/21/25 09:45 clarithromycin Allergy Verified 07/21/25 09:45 codeine (From Allergy Verified 07/21/25 09:45 Tylenol-Codeine) diphenhydramine Allergy Verified 07/21/25 09:45 hydrocodone (From Panlor Allergy Verified 07/21/25 09:45 (hydrocodone-acetamin)) isosorbide Allergy Verified 07/21/25 09:45 latex Allergy Verified 07/21/25 09:45 meperidine Allergy Verified 07/21/25 09:45 morphine Allergy Verified 07/21/25 09:45 penicillin V Allergy Verified 07/21/25 09:45 sulfacetamide Allergy Verified 07/21/25 09:45 [facility] Disclaimer: The information contained in this section may have been updated after the patient was seen, as this information can be updated by other users. 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, NYHA class 4 Heart failure with preserved ejection fraction Diabetes mellitus Atrial fibrillation Coronary artery disease Hyperthyroidism Hypertension Sleep apnea with use of continuous positive airway pressure (CPAP) COPD (chronic obstructive pulmonary disease) Surgical History History of knee replacement procedure of right knee History of History of cataract surgery History of cholecystectomy History of breast surgery History of hysterectomy History of carpal tunnel surgery Bilateral History of coronary artery stent placement Social History Smoking Status: Never smoker alcohol intake: never current occupational status: previously employed Travel in the last 8 weeks?: None Have you lived/traveled outside [place] in past 30 days?: No Contact w/someone who lives/traveled outside US past 30 days?: No Exposure to someone with infectious disease in past 14 days?: No Do you have a fever (greater than 100.4 F or 38 C)?: No Have you tested positive for COVID-19?: No Exposed to someone with COVID-19 in past 14 days?: No Do you have a sore throat?: No Do you have a cough?: No Do you have any weakness?: No Do you have any diarrhea?: No Are you experiencing any unusual bleeding?: No Do you have any muscle aches/pain?: No Do you have any abdominal pain?: No Are you experiencing loss of taste or smell?: No Other Medical History Have you received the Flu Vaccine for this season: No Have you received the Pneumonia Vaccine: No (unknown) ROS Obtained: Yes All systems reviewed & no additional complaints except as documented Physical Exam General General appearance: alert and anxious Head Head exam: atraumatic and normocephalic Eye Eye exam: Present normal appearance, PERRL and EOMI ENT ENT exam: Present normal oropharynx and normal external ear exam Neck Neck exam: Present normal inspection and full ROM Chest Chest inspection: Present normal inspection and symmetric chest wall rise; Absent tenderness Respiratory Respiratory exam: Present normal lung sounds bilaterally; Absent respiratory distress Cardiovascular Cardiovascular exam: Present normal rhythm and tachycardia Abdominal Exam Abdominal exam: Present soft and tenderness (Mild, generalized); Absent distention or guarding Extremities Exam Extremities exam: Present normal inspection; Absent edema or joint swelling Back Exam Back exam: Present normal inspection; Absent tenderness Neurological Exam Neurological exam: Present alert and oriented X3; Absent motor sensory deficit Psychiatric Psychiatric exam: Present normal affect and normal mood Skin Skin exam: Present warm, dry and normal color Lymphatic Lymphatic Findings: no adenopathy Medical Decision Making Medical Records Medical records reviewed: Yes I reviewed the patient's medical records. Screening: Per USPSTF and CDC recommendations, given the prevalence of disease in our region, it is our hospital?s policy to screen for HIV and viral Hepatitis for all patients aged 18 and over and those with ongoing risk factors. Gabriel Inquiry Pt receiving controlled substance: No Gabriel was queried for this patient: No Vital Signs: 09/20/25 23:01 09/20/25 23:07 09/20/25 23:15 Temperature 98.6 F Temperature Source Axillary Pulse Rate 113 H 102 H Pulse Rate [Right Radial] 104 H Respiratory Rate 27 H 22 Blood Pressure 136/78 Blood Pressure [Right Arm] 136/78 Blood Pressure Mean 91 Blood Pressure Mean [Right Arm] 97 Blood Pressure Source Blood Pressure Source [Right Arm] Automatic Cuff Blood Pressure Position Blood Pressure Position [Right Arm] Supine 02 Sat by Pulse Oximetry 98 97 Oxygen Delivery Method Room Air 09/20/25 23:31 09/21/25 01:01 09/21/25 02:41 Temperature Temperature Source Pulse Rate 107 H 132 H 99 H Pulse Rate [Right Radial] Respiratory Rate 15 18 14 Blood Pressure 135/83 158/106 H 161/82 H Blood Pressure [Right Arm] Blood Pressure Mean 94 113 108 Blood Pressure Mean [Right Arm] Blood Pressure Source Blood Pressure Source [Right Arm] Blood Pressure Position Blood Pressure Position [Right Arm] 02 Sat by Pulse Oximetry 98 98 96 Oxygen Delivery Method 09/21/25 03:00 09/21/25 03:30 09/21/25 04:00 Temperature Temperature Source Pulse Rate 104 H 94 H 88 Pulse Rate [Right Radial] Respiratory Rate 18 23 22 Blood Pressure 145/84 H 155/86 H 166/90 H Blood Pressure [Right Arm] Blood Pressure Mean 104 109 119 Blood Pressure Mean [Right Arm] Blood Pressure Source Blood Pressure Source [Right Arm] Blood Pressure Position Blood Pressure Position [Right Arm] 02 Sat by Pulse Oximetry 100 99 98 Oxygen Delivery Method 09/21/25 04:30 09/21/25 05:00 09/21/25 05:00 Temperature Temperature Source Pulse Rate 93 H Pulse Rate [Right Radial] Respiratory Rate 18 20 Blood Pressure 161/91 H 155/82 H Blood Pressure [Right Arm] Blood Pressure Mean 114 115 Blood Pressure Mean [Right Arm] Blood Pressure Source Blood Pressure Source [Right Arm] Blood Pressure Position Blood Pressure Position [Right Arm] 02 Sat by Pulse Oximetry 100 Oxygen Delivery Method 09/21/25 05:15 09/21/25 05:30 09/21/25 05:30 Temperature Temperature Source Pulse Rate Pulse Rate [Right Radial] Respiratory Rate 17 22 Blood Pressure 149/91 H Blood Pressure [Right Arm] Blood Pressure Mean 110 Blood Pressure Mean [Right Arm] Blood Pressure Source Blood Pressure Source [Right Arm] Blood Pressure Position Blood Pressure Position [Right Arm] 02 Sat by Pulse Oximetry Oxygen Delivery Method 09/21/25 05:45 09/21/25 06:00 09/21/25 06:00 Temperature Temperature Source Pulse Rate Pulse Rate [Right Radial] Respiratory Rate 18 20 Blood Pressure 152/84 H Blood Pressure [Right Arm] Blood Pressure Mean 104 Blood Pressure Mean [Right Arm] Blood Pressure Source Blood Pressure Source [Right Arm] Blood Pressure Position Blood Pressure Position [Right Arm] 02 Sat by Pulse Oximetry Oxygen Delivery Method 09/21/25 06:15 09/21/25 06:30 09/21/25 06:30 Temperature Temperature Source Pulse Rate Pulse Rate [Right Radial] Respiratory Rate 19 18 Blood Pressure 143/84 H Blood Pressure [Right Arm] Blood Pressure Mean 103 Blood Pressure Mean [Right Arm] Blood Pressure Source Blood Pressure Source [Right Arm] Blood Pressure Position Blood Pressure Position [Right Arm] 02 Sat by Pulse Oximetry Oxygen Delivery Method 09/21/25 06:45 09/21/25 07:00 09/21/25 07:30 Temperature Temperature Source Pulse Rate Pulse Rate [Right Radial] Respiratory Rate 18 26 H 18 Blood Pressure 149/79 H 150/81 H Blood Pressure [Right Arm] Blood Pressure Mean Blood Pressure Mean [Right Arm] Blood Pressure Source Blood Pressure Source [Right Arm] Blood Pressure Position Blood Pressure Position [Right Arm] 02 Sat by Pulse Oximetry Oxygen Delivery Method 09/21/25 08:00 09/21/25 08:30 09/21/25 09:00 Temperature Temperature Source Pulse Rate Pulse Rate [Right Radial] Respiratory Rate 18 14 17 Blood Pressure 132/91 H 133/77 135/60 Blood Pressure [Right Arm] Blood Pressure Mean Blood Pressure Mean [Right Arm] Blood Pressure Source Blood Pressure Source [Right Arm] Blood Pressure Position Blood Pressure Position [Right Arm] 02 Sat by Pulse Oximetry Oxygen Delivery Method 09/21/25 09:30 09/21/25 10:01 09/21/25 10:06 Temperature 98.6 F Temperature Source Oral Pulse Rate 92 H Pulse Rate [Right Radial] Respiratory Rate 14 17 16 Blood Pressure 128/68 115/61 115/61 Blood Pressure [Right Arm] Blood Pressure Mean Blood Pressure Mean [Right Arm] Blood Pressure Source Automatic Cuff Blood Pressure Source [Right Arm] Blood Pressure Position Supine Blood Pressure Position [Right Arm] 02 Sat by Pulse Oximetry Oxygen Delivery Method Room Air Lab Data Lab results reviewed: Yes I reviewed the patient's lab results. Lab Results 09/21/25 02:45: Urine Color Yellow, Urine Appearance Clear, Urine pH 6.5, Ur Specific [place] 1.020, Urine Protein Trace, Urine Glucose (UA) Negative, Urine Ketones Negative, Urine Blood Negative, Urine Nitrate Negative, Urine Bilirubin Negative, Urine Urobilinogen 1.0, Ur Leukocyte Esterase Trace Orders (Tests/Meds): ORDERS Category Date Time Status CT abdomen pelvis wo con Stat Cat Scan 09/21/25 00:30 Completed UA [Urinalysis and Microscopic] Stat Lab 09/21/25 02:45 Completed Medical Decision Narrative: 85-year-old female, resident at a long-term nursing facility, history of heart diabetes, A-fib, mild cognitive impairment presents for abdominal pain. History was obtained via interactive discussion with patient. On arrival, patient is [afebrile, hemodynamically stable, satting appropriately, alert, oriented x3, GCS 15], moving all extremities spontaneously. Full physical exam performed and significant for mild abdominal tenderness. She is alert and oriented for me. Patient initially refused her IV, after some discussion she agreed to an IV, but then refused again. She again agreed and we attempted an IV stick and then an IV with ultrasound. After this patient flatly declined any more IVs. I wanted to obtain labs and get a CT scan with contrast, but given patient's refusal we will do a Noncon CT. She is alert and oriented and I believe she is able to refuse an IV at this time. Differential includes but is not limited to gastroenteritis, colitis, pancreat itis, obstruction, UTI, pyelonephritis. I offer the patient medication for pain and she declined. Workup initiated including Noncon CT of the abdomen pelvis, urinalysis. On re-evaluation, patient [remains afebrile, HD stable.] Imaging independently interpreted by me and significant for CT imaging with questionable cystitis, no obstruction, no obvious inflammation. See radiology read for full review of final results. No evidence of emergent pathology based on CT scan or vital signs. Patient's abdominal pain seems improved. She declined further workup and was discharged in stable condition. Procedures Risk/Benefits of Procedure(s) Were Explained: Yes Critical Care Critical Care Time Critical Care Time: No
[2025-09-20 23:01] VITALS: BP 136/78; PULSE 113; RESP 27; O2SAT 98
[2025-09-20 23:07] VITALS: BP 136/78; PULSE 104; RESP 22; TEMP 37; O2SAT 97; BMI 31.7
[2025-09-20 23:15] VITALS: PULSE 102
[2025-09-20 23:31] VITALS: BP 135/83; PULSE 107; RESP 15; O2SAT 98
[2025-09-21] VITALS (22 sets, daily range): BP systolic 115–166; BP diastolic 60–106; PULSE 88–132; RESP 14–26; TEMP 37; O2SAT 96–100
--- NOTE | 2025-09-21 00:30 | CT_ITS ---
PROCEDURE INFORMATION: Exam: CT Abdomen And Pelvis Without Contrast Exam date and time: 09/21/2025 12:43 AM Age: 85 years old Clinical indication: Abdominal pain; Additional info: Abd pain TECHNIQUE: Imaging protocol: Computed tomography of the abdomen and pelvis without contrast. Radiation optimization: All CT scans at this facility use at least one of these dose optimization techniques: automated exposure control; mA and/or kV adjustment per patient size (includes targeted exams where dose is matched to clinical indication); or iterative reconstruction. COMPARISON: No relevant prior studies available. FINDINGS: Lungs: Basilar atelectasis, [id number]. Pleural spaces: Right pleural effusion. Heart: Mitral annulus calcifications. Coronary arteries: Heavy coronary calcified atherosclerotic disease. Liver: Normal. No mass. Gallbladder and biliary ducts: Cholecystectomy changes. Pancreas: Atrophic pancreas. Spleen: Normal. No splenomegaly. Adrenal glands: Nodular adrenal glands without definable mass or lesion. Kidneys and ureters: Benign-appearing renal cysts bilaterally. Stomach and bowel: Diverticulosis without evidence of diverticulitis. Appendix: No evidence of appendicitis. Intraperitoneal space: Unremarkable. No free air. No significant fluid collection. Vasculature: Moderate atherosclerotic disease of the abdomen. Lymph nodes: Unremarkable. No enlarged lymph nodes. Urinary bladder: Layering sediment within the urinary bladder. Prominent urinary bladder with some mild surrounding perivesicular inflammatory fat changes. Reproductive: Hysterectomy. Bones/joints: Partially evaluated right total hip arthroplasty. Demineralized bones. Severe degenerative changes of the axial skeleton. Soft tissues: Unremarkable. IMPRESSION: 1. Questionable cystitis. Correlate clinically. 2. Otherwise, no acute findings of the abdomen. COMMENTS: Consistent with the [employer]'s Incidental Findings Committee white paper (J Am Ana Luisa Radiol 2018): Any incidental renal lesion less than 1 cm or classified as too small to characterize, or any incidental cystic renal lesion characterized as simple-appearing, is likely benign. No follow-up imaging is recommended for these lesions per consensus recommendations based on imaging criteria.
[2025-09-21 03:06] LABS: Microscopic, Urine URINE MICROSCOPIC (MICROSCOPIC)
[2025-09-21 03:13] LABS: Bilirubin,Urine Negative (Negative); Color,Urine YELLOW (Yellow); Glucose,Urine (UA) Negative (Negative); Ketones,Urine Negative (Negative); Leukocyte Esterase,Urine TRACE (Negative); PH,Urine 6.5 (5.0-8.5); Protein,Urine TRACE (Negative); Specific Gravity, Urine 1.020 (1.005-1.030); Urobilinogen,Urine 1.0 EU/dl (0.2)
--- NOTE | 2025-09-21 06:49 | PC.NURSE ---
Report called to DAVID Todd at [facility] [place].
--- NOTE | 2025-09-21 10:05 | PC.NURSE ---
Called EMS @ [phone] to follow up on when they could take a patient back to [place].
== END 2025-09-21 10:13 ==
PROVIDERS: Emergency Provider Emergency Medicine; PCP Family Medicine
DX: R10.84 Generalized abdominal pain (principal)
CPT/HCPCS: 74176; 81001; 93005; 99285

== ENCOUNTER 2025-09-29 11:01 | Outpatient (CLI) | payer MEDICARE, SELFPAY ==
[2025-09-29 11:04] LABS: Microscopic, Urine URINE MICROSCOPIC (MICROSCOPIC)
[2025-09-29 11:10] LABS: Hematocrit 29.6 % (37.0-47.0); Hemoglobin 9.1 g/dL (12.2-16.2); Immature Granulocytes % 0.3 %; Mean Corpuscular HGB Conc 30.7 g/dL (31.8-35.4); Mean Corpuscular Hemoglobin 23.7 pg (27.0-31.2); Mean Corpuscular Volume 77.1 fl (81-99); Nucleated Red Blood Cells % 0 %; Platelet Count 136 K/mm3 (142-424); Red Blood Count 3.84 M/mm3 (4.20-5.40); Red Cell Distribution Width-SD 47.4 fL; White Blood Count 5.7 K/mm3 (4.8-10.8)
[2025-09-29 11:37] LABS: Anion Gap 10.6 mEq/L (5-15); Blood Urea Nitrogen 10 mg/dl (7-17); Calcium 9.0 mg/dl (8.4-10.2); Carbon Dioxide 24 mmol/L (22.0-30.0); Chloride 109 mmol/L (98-107); Creatinine,Serum 0.80 mg/dl (0.52-1.04); Estimated Glomerular Filt Rate 68 ml/min (>60); GFR (African American) 82 ML/MIN (>60); Glucose 82 mg/dl (74-100); Potassium 4.6 mmoL/L (3.5-5.1); Sodium 139 mmol/L (136-145)
[2025-09-29 12:05] LABS: Thyroid Stimulating Hormone 1.45 uIU/mL (0.465-4.68)
[2025-09-29 13:46] LABS: Iron 49 ug/dL (37-170)
[2025-09-29 13:57] LABS: Total Iron Binding Capacity 305 ug/dL (265-497)
[2025-09-29 14:22] LABS: Hemoglobin A1C 6.2 % (4.0-6.0)
[2025-09-29 14:24] LABS: Ferritin 28.7 ng/ml (11.1-264)
[2025-09-29 15:23] LABS: Free T4 (Free Thyroxine) 1.09 ng/dl (0.78-2.19)
[2025-09-29 18:58] LABS: Bilirubin,Urine Negative (Negative); Color,Urine YELLOW (Yellow); Glucose,Urine (UA) Negative (Negative); Ketones,Urine Negative (Negative); Leukocyte Esterase,Urine 2+ (Negative); PH,Urine 5.5 (5.0-8.5); Protein,Urine Negative (Negative); Specific Gravity, Urine >= 1.030 (1.005-1.030); Urobilinogen,Urine 0.2 EU/dl (0.2)
[2025-09-29 20:22] LABS: Bacteria,Urine 4+ /lpf
== END 2025-09-29 23:59 | disposition home or self-care (01) ==
LOC: LAB.DROPOF 11:02
PROVIDERS: PCP Family Medicine; Visit Provider Nurse Practitioner Family
DX: D64.9 Anemia, unspecified (principal)
CPT/HCPCS: 36415; 80048; 81001; 82728; 83036; 83540; 83550; 84439; 84443; 85025; 87086

== ENCOUNTER 2025-10-06 08:38 | Outpatient (CLI) | payer MEDICARE, SELFPAY | END 2025-10-06 23:59 | disposition home or self-care (01) | LOC: LAB.DROPOF 08:39 | PROVIDERS: PCP Family Medicine; Visit Provider Family Medicine | DX: M54.12 Radiculopathy, cervical region (principal); G93.41 Metabolic encephalopathy | CPT/HCPCS: 87070; 87205 ==